=== PATIENT | female | born 1955 | race Caucasian/White ===

== ENCOUNTER 2019-11-16 07:08 | Outpatient (CLI) | payer BC, SELFPAY ==
[2019-11-16 08:01] LABS: Alanine Aminotransferase 17 U/L (4-35); Albumin Level 4.4 g/dL (3.5-5.1); Alkaline Phosphatase 113 U/L (38-126); Aspartate Amino Transferase 26 U/L (14-36); Bilirubin,Total 0.4 mg/dL (0.2-1.3); Blood Urea Nitrogen 14 mg/dL (7-17); Calcium 9.5 mg/dL (8.4-10.2); Carbon Dioxide 31 mmol/L (22-30); Chloride 100 mmol/L (98-107); Cholesterol 203 mg/dL (0-200); Estimated Glomerular Filt Rate > 60; Glucose 86 mg/dL (65-105); HDL Direct 51 mg/dL; Potassium 3.9 mmol/L (3.4-5.0); Sodium 139 mmol/L (137-145); Triglycerides 137 mg/dL (<150)
[2019-11-16 08:12] LABS: LDL Cholesterol Direct 130 mg/dL
== END 2019-11-16 07:09 | disposition home or self-care (01) ==
PROVIDERS: PCP Internal Medicine; Visit Provider Nurse Practitioner
DX: I10 Essential (primary) hypertension (principal); E78.5 Hyperlipidemia, unspecified
CPT/HCPCS: 36415; 80053; 80061

== ENCOUNTER 2019-11-23 06:34 | Outpatient (CLI) | payer BC, SELFPAY ==
--- NOTE | 2019-11-23 07:29 | ECHO_ITS ---
Patient Info Name: Kathryn Turner Age: 64 years : 1955 Gender: Female Ht: 66 in Wt: 161 lbs BSA: 1.86 m2 HR: 72 bpm BP: 144 / 99 mmHg Technical Quality: Good Exam Date: 11/23/2019 8:08 AM Exam Location: [facility] Patient Status: Outpatient Admit Date: 11/23/2019 Staff Ordering Physician: Cesar Corbin APN News Videographer: Jasper Cali RDCS, RT Attending Provider: Cesar Corbin APN Referring Physician: Shaquille DEMPSEY; Exam Type: CA echo doppler color flow Study Info Indications R55 - Syncope and collapse Complete two-dimensional, color flow and Doppler transthoracic echocardiogram is performed. Summary 1. Left ventricular chamber dimension is normal. 2. Left ventricular systolic function is normal, estimated at 60-65%. 3. There is mildly increased left ventricular wall thickness. 4. The left ventricular diastolic function is grade I diastolic dysfunction. 5. E/e' 7 is not elevated. 6. Global longitudinal strain is slightly abnormal at -16.6%. 7. There is mild aortic valve regurgitation. Left Ventricle E/e' 7 is not elevated. Global longitudinal strain is slightly abnormal at -16.6%. Left ventricular chamber dimension is normal. Left ventricular systolic function is normal, estimated at 60-65%. There is mildly increased left ventricular wall thickness. The left ventricular diastolic function is grade I diastolic dysfunction. Right Ventricle Right ventricular chamber dimension is normal. Right ventricular systolic function is normal. Left Atria Left atrial chamber dimension is normal. Right Atria Right atrial chamber dimension is normal. Aortic Valve The aortic valve is trileaflet. There is no aortic valve stenosis. There is mild aortic valve regurgitation. Pulmonic Valve There is no pulmonic regurgitation. Mitral Valve There is no mitral valve stenosis. There is no mitral valve regurgitation. Tricuspid Valve There is no tricuspid valve regurgitation. Pericardium/Pleural There is no pericardial effusion. Inferior Vena Cava Normal inferior vena cava with >50% collapse upon inspiration consistent with normal right atrial pressure, 5 mmHg. Aorta The aortic root size at the sinus of Valsalva is normal. Left Ventricular Outflow Tract Name Value Normal LVOT 2D LVOT Diameter 1.9 cm LVOT Doppler LVOT Peak Gradient 4 mmHg LVOT Mean Gradient 2 mmHg LVOT VTI 17 cm LVOT VTI/AV VTI Ratio 0.6 LVOT Stroke Volume 51 ml LVOT CO 3.9 l/min LVOT CI 2.1 l/min/m2 Pulmonic Valve Name Value Normal PV Doppler PV Peak Gradient 3 mmHg Mitral Valve
--- NOTE | 2019-11-23 07:30 | NEURO_ITS ---
TEST: ELECTROENCEPHALOGRAM DIAGNOSIS: SYNCOPE AND COLLAPSE PATIENT NUMBER: [id number] EEG NUMBER: [id number] RECORDING DATE: 11/23/19 CLINICAL HISTORY: Patient reports she has been losing consciousness since she was a kid. Happens about once a year. No warning signs before and is tired afterwards. CONDITION OF RECORDING: Awake and drowsy EEG DESCRIPTION: Basic resting occipital frequency consists of moderate amount of well organized low to medium voltage 8-10hz alpha mixed with minimal amount of low voltage 15-18hz beta. During drowsiness low voltage beta activity is seen diffusely mixed with waxing and waning posterior alpha rhythms. Photic stimulation produced normal drive. Nonparoxysmal. Nonfocal. Nonlateralizing. IMPRESSION: Normal record. [facility]
--- NOTE | 2019-11-26 12:38 | WPDHOLTEREM ---
Holter/Event Monitor Holter/Event Monitor Date of procedure: 11/23/19 Procedure Type: 48 hour holter monitor Indications: Syncope Conclusion: 1. 48 hour holter monitor on 11/23/19. 2. Underlying rhythm is sinus rhythm. HR range 40-136 bpm; average HR 86 bpm. 3. There are 165 premature supraventricular complexes, 3 supraventricular couplets, 1 supraventricular triplet, 3 supraventricular bigeminy. No supraventricular tachycardia. 4. There are 38 premature ventricular complexes. No ventricular tachycardia. 5. No sinoatrial or atrioventricular blocks. No significant pauses greater than 2 seconds. 6. Patient reports chest pain, neck pulsations, left shoulder tightness, flutter which demonstrate Sinus rhythm, HR range 79-110 bpm.
== END 2019-11-23 06:35 | disposition home or self-care (01) ==
PROVIDERS: PCP Internal Medicine; Visit Provider Nurse Practitioner
DX: R55 Syncope and collapse (principal)
CPT/HCPCS: 93225; 93226; 93306; 95816

== ENCOUNTER 2021-06-20 07:29 | Outpatient (CLI) | payer BC, SELFPAY ==
[2021-06-20 08:10] LABS: Anion Gap 13 mmol/L (8-16); Blood Urea Nitrogen 12 mg/dL (7-17); Calcium 9.6 mg/dL (8.4-10.2); Carbon Dioxide 31 mmol/L (22-30); Chloride 98 mmol/L (98-107); Cholesterol 200 mg/dL (0-200); Estimated Glomerular Filt Rate > 60; Glucose 94 mg/dL (65-110); HDL Direct 43 mg/dL; Potassium 3.8 mmol/L (3.4-5.0); Sodium 142 mmol/L (137-145); Triglycerides 237 mg/dL (<150)
[2021-06-20 08:21] LABS: LDL Cholesterol Direct 110 mg/dL
== END 2021-06-20 07:30 | disposition home or self-care (01) ==
PROVIDERS: PCP Internal Medicine; Visit Provider Internal Medicine
DX: E78.5 Hyperlipidemia, unspecified (principal); I10 Essential (primary) hypertension; E04.9 Nontoxic goiter, unspecified
CPT/HCPCS: 36415; 80048; 80061; 84443

== ENCOUNTER 2021-10-08 09:49 | Emergency (ER) | payer MEDICARE, BC, SELFPAY ==
--- NOTE | ~2021-10-08 | XR_ITS ---
XR chest 1V portable 10/08/2021 10:07 Indication: Fatigue. Left-sided back pain. Procedure: AP portable chest Comparison: 08/31/2019 Findings: There is a focal opacification in the left upper thorax, suspicious for pneumonia. Heart si ze normal. Right lung clear. No pleural effusion or pneumothorax. Impression: 1: Focal opacification left upper thorax, suspicious for pneumonia. Recommend follow-up x-ray in 3-4 weeks following appropriate therapy to assess for resolution. Reviewed, dictated and finalized at location A. NG MECHANIC Impression: 1: Focal opacification left upper thorax, suspicious for pneumonia. Recommend f ollow-up x-ray in 3-4 weeks following appropriate therapy to assess for resolut ion.
--- NOTE | ~2021-10-08 | CT_ITS ---
EXAMINATION: CT abdomen pelvis w con DATE: 10/08/2021 11:33 INDICATION: Left lower quadrant abdominal pain TECHNIQUE: Computed tomography (CT) of the abdomen and pelvis was performed with 100 cc Omnipaque 350 intravenous contrast. Automated exposure control and iterative reconstruction technique were employe d. Exam dose: 533.83 mGy-cm total exam DLP. COMPARISON: None. FINDINGS: The lung bases are clear of infiltrate or consolidation. Normal heart size. No pericardial or pleural effusion. Very small sliding hiatal hernia. There is an approximately 5.3 x 6.6 x 10 cm large heterogeneous apparently centrally necrotic right a drenal mass with prominent invasion of the inferior vena cava. There is a 2 x 3.2 x 4.4 cm left adrenal heterogeneous soft tissue mass. Differential diagnosis inclu jaqui bilateral intrarenal carcinoma, pheochromocytomas and metastatic disease. The right adrenal mass would be amenable to CT-guided V for biopsy. There is diffuse hepatic steatosis. No hepatic space-occupying mass lesion is evident. The gallbladde r is present. No bile duct dilatation. No pancreatic mass lesion, calcification or pancreatic duct di latation. Normal splenic size. No renal mass lesion or urinary tract calculus or hydroureteronephrosis. Retroverted uterus. The urinary bladder is unremarkable. There is atherosclerotic calcification but normal caliber of the abdominal aorta. There is calcificat ion of the proximal renal arteries. There is nonspecific shotty pericaval and aortocaval nonenlarged nodes. There is diverticulosis of the right colon; no CT evidence of diverticulitis. Normal appendix. No bow el obstruction, bowel wall thickening, pneumatosis or intraperitoneal free air. Small fat-containing umbilical hernia. No suspicious osteolytic or osteoblastic lesions are noted. IMPRESSION: Bilateral adrenal masses with inferior vena cava invasion. Primary or metastatic bilater al adrenal malignancy or pheochromocytomas or metastatic disease is suspected; consider CT-guided per cutaneous right adrenal mass biopsy Hepatic steatosis Very small sliding hiatal hernia Diverticulosis of the right colon; no CT evidence of diverticulitis Reviewed, dictated and finalized at [facility]. Reviewed, dictated and finalized at location B. ER OFF IMPRESSION: Bilateral adrenal masses with inferior vena cava invasion. Primary or metastatic bilateral adrenal malignancy or pheochromocytomas or metastatic disease is suspected; consider CT-guided percutaneous right adrenal mass biopsy Hepatic steatosis Very small sliding hiatal hernia Diverticulosis of the right colon; no CT evidence of diverticulitis
[2021-10-08 09:48] VITALS: BP 137/61; PULSE 104; RESP 16; TEMP 36.6; O2SAT 95
[2021-10-08 10:18] LABS: Basophils Absolute Auto 0.1 K/mm3 (0.0-0.1); Basophils Percent Auto 0.6 % (0.2-1.2); Eosinophils Absolute Auto 0.4 K/mm3 (0-0.3); Eosinophils Percent Auto 2.9 % (0-4.4); Hemoglobin 11.5 g/dL (12.0-15.0); Immature Granulocyte Absolute 0.06 K/mm3 (0.00-0.031); Immature Granulocyte Percent A 0.5 % (0-0.5); Lymphocytes Percent Auto 13.8 % (18.3-44.2); Mean Corpuscular HGB Conc 31.9 g/dl (32-36); Mean Corpuscular Hemoglobin 28.9 pg (26-34); Mean Corpuscular Volume 90.5 fl (80-100); Mean Platelet Volume 10.6 fl (7.4-10.4); Monocytes Absolute Auto 0.8 K/mm3 (0.1-0.6); Monocytes Percent Auto 6.2 % (2.6-8.5); Neutrophils Absolute Auto 9.9 K/mm3 (1.3-6.7); Platelet Count Result 353 k/mm3 (150-375); Red Blood Count 3.98 M/mm3 (4.2-5.4); Red Cell Distribution Width 13.3 % (11.5-14.5)
[2021-10-08 10:31] LABS: Alanine Aminotransferase 14 U/L (4-35); Alkaline Phosphatase 116 U/L (38-126); Anion Gap 8 mmol/L (8-16); Aspartate Amino Transferase 25 U/L (14-36); Bilirubin,Total 0.6 mg/dL (0.2-1.3); Blood Urea Nitrogen 14 mg/dL (7-17); Calcium 9.6 mg/dL (8.4-10.2); Carbon Dioxide 31 mmol/L (22-30); Chloride 97 mmol/L (98-107); Estimated CRCL calculation 57 ml/min; Estimated Glomerular Filt Rate > 60; Glucose 104 mg/dL (65-110); Lipase 25 U/L (23-300); Potassium 3.3 mmol/L (3.4-5.0); Sodium 136 mmol/L (137-145)
[2021-10-08] MEDS: SODIUM CHLORIDE 0.9% IV 1,000 ML 999 ML IV CONT (11:13)
[2021-10-08 12:53] VITALS: BP 125/73; PULSE 81; RESP 16; O2SAT 97
[2021-10-08 13:16] LABS: Add Urine Microscopic? YES; Appearance Urine Clear (Clear); Bilirubin Urine Negative (Negative); Blood Urine Negative (Negative); Color Urine Yellow (Yellow); Glucose Urine UA Negative (Negative); Ketones Urine Trace mg/dL (Negative); Leukocyte Esterase Ur Trace LEU/UL (Negative); Mucus Urine Rare /lpf; Nitrate Urine Negative (Negative); Protein Urine 2+ mg/dL (Negative); Squamous Epithelial Cell Urine Rare /hpf (Few); Urobilinogen Urine Negative mg/dL (<2.0)
[2021-10-08 14:04] LABS: Specific Grav Ur 1.005 (1.001-1.035)
--- NOTE | 2021-10-08 15:41 | ED.GENADULT ---
HPI - General Adult General Chief complaint: Back Pain/Injury Stated complaint: hip, back pain Time Seen by Provider: 10/08/21 09:51 Source: patient Mode of arrival: ambulatory Limitations: no limitations History of Present Illness HPI narrative: Patient is 66-year-old female with chief complaint of fatigue, decreased appetite and left-sided back pain that has progressively worsened over the past 5 days. Patient states that she has not seen her primary care regarding her symptoms. Patient states that she does not have nausea vomiting or abdominal pain but has not had an appetite. Patient denies her symptoms worsening with eating or drinking. Patient denies any fever, chills, cough, shortness of breath or chest pain. Patient reports that she took one of her husbands tramadol for discomfort. She denies any falls or recent traumatic injuries. Patient reports that her only chronic medical condition is hypertension. She denies history of colonoscopy or any abdominal issues. Related Data Allergies Allergy/AdvReac Type Severity Reaction Status Date / Time No Known Allergies Allergy Unknown Unverified 06/27/21 11:18 Review of Systems Review of Systems: CONSTITUTIONAL: Reports loss of appetite denies fever, chills, or sweats. EYES: Denies visual changes, redness, or discharge. ENT: Denies rhinorrhea, congestion, sore throat, or otalgia. CARDIOVASCULAR: Denies chest pain, palpitations, or edema. RESPIRATORY: Denies cough or dyspnea. GASTROINTESTINAL: Denies abdominal pain, nausea, vomiting, or diarrhea. GENITOURINARY: Denies dysuria or hematuria. SKIN: Denies rash or itching. MUSCULOSKELETAL: Reports left side back pain, denies joint pain, or myalgia. NEUROLOGIC: Denies headache, numbness, dizziness, or weakness. PSYCHIATRIC: Denies anxiety or depression. [facility] Past Medical History Medical History (Updated 10/08/21 @ 12:21 by Manjinder Franks PA-C) Chronic back pain Goiter Hypertension Surgical History Surgical History Hx of tubal ligation Family History Family History Mother Patient's mother is in good health Father Carcinoma of colon, Onset Age: 62 Patient's father is Social History Social History (Updated 06/27/21 @ 11:18 by MICHELLE Pop Smoking status: Former smoker Second hand tobacco smoke exposure: No Smoking end date: 10/20/00 Alcohol intake: never Substance use: never Gender identity (if verbalized by the patient): Female Exam Narrative: GENERAL: Well-appearing, well-nourished, and in no acute distress. HEAD: Normocephalic, atraumatic. EYES: PERRLA and EOMI. ENT: Nares clear, no rhinorrhea or epistaxis. Mucous membranes moist. Oropharynx without tonsillar hypertrophy exudate or other lesions. Bilateral TMs pearly geller nonbulging NECK: Supple. No adenopathy or masses. Range of motion intact. CHEST: Clear to auscultation. No respiratory distress. No wheezes rales or rhonchi HEART: Regular rate and rhythm. No murmur heard. Normal peripheral pulses. BACK: No pain with palpation. No CVA tenderness. ABDOMEN: Soft, pain with palpation to left quadrant, nondistended, normal active bowel sounds. EXTREMITIES: Normal range of motion. No edema. SKIN: Warm, dry, no rash. NEURO: No focal deficits. Alert and oriented x3. PSYCH: Normal mood and affect. Course Vital Signs Vital signs: Vital Signs Temperature 97.8 F 10/08/21 09:48 Pulse Rate 104 H 10/08/21 09:48 Respiratory Rate 16 10/08/21 09:48 Blood Pressure 137/61 10/08/21 09:48 Pulse Oximetry 95 10/08/21 09:48 Temperature 97.8 F 10/08/21 09:48 Pulse Rate 81 10/08/21 12:53 Respiratory Rate 16 10/08/21 12:53 Blood Pressure 125/73 10/08/21 12:53 Pulse Oximetry 97 10/08/21 12:53 Medical Decision Making MDM Narrative Medical decision making narrative: Consult with patien
== END 2021-10-08 12:54 | disposition home or self-care (01) ==
PROVIDERS: Physician Assistant; Emergency Provider Emergency Medicine; PCP Internal Medicine
DX: R91.8 Other nonspecific abnormal finding of lung field (principal); E27.9 Disorder of adrenal gland, unspecified; I10 Essential (primary) hypertension; Z87.891 Personal history of nicotine dependence; K76.0 Fatty (change of) liver, not elsewhere classified; K44.9 Diaphragmatic hernia without obstruction or gangrene; K57.90 Diverticulosis of intestine, part unspecified, without perforation or abscess without bleeding
CPT/HCPCS: 36415; 71045; 74177; 80053; 81001; 83690; 85025; 96360; 99284; J7030; Q9967

== ENCOUNTER 2021-10-10 09:49 | Inpatient (IN) | payer MEDICARE, BC, SELFPAY ==
[2021-10-10] VITALS (7 sets, daily range): BP systolic 113–139; BP diastolic 62–87; PULSE 79–104; RESP 14–18; TEMP 36.1; O2SAT 98–100
--- NOTE | ~2021-10-10 | US_ITS ---
US venous doppler [facility] DATE: 10/12/2021 08:04 INDICATION: Pulmonary embolism TECHNIQUE: Real-time and color flow imaging and Doppler analysis of the veins of the lower extremitie s COMPARISON: None FINDINGS: There is spontaneous and phasic flow and normal augmentation and color flow signal and norm al compression of the deep veins of both lower extremities. The greater saphenous veins are patent. IMPRESSION: No evidence of deep venous thrombosis of the lower extremities Reviewed, dictated and finalized at Location [facility]. Reviewed, dictated and finalized at location A. OLOGIC TECHNOLOGY PROGRAM DIRECTOR
--- NOTE | ~2021-10-10 | CT_ITS ---
EXAMINATION: CT biopsy abdomen percutaneous DATE: 10/11/2021 12:05 INDICATION: Right adrenal mass. TECHNIQUE: The procedure including the risks, benefits, and alternatives was discussed with the patie nt. Risks discussed included bleeding and infection. The patient verbalized understanding of the risk s and agreed to proceed. The skin overlying the right adrenal gland was prepped and draped in usual sterile fashion. Anesthetic was administered with 1% lidocaine subcutaneously. A 16 gauge outer nee dle was advanced under CT guidance into the right adrenal gland. An 18 gauge core biopsy needle was t hen used to obtain 3 core biopsy specimens. The mA was adjusted according to patient size. Iterative reconstruction technique was employed. The dose-length product was 128.89 mGy-cm. The needle was olimpia pepito and the entry site was cleaned and dressed. There were no immediate complications. FINDINGS: CT images demonstrate the outer needle tip next to a right adrenal mass. IMPRESSION: 1. CT-guided core needle biopsy of a right adrenal mass. Reviewed, dictated and finalized at location A. TREAT INSPECTOR
--- NOTE | ~2021-10-10 | CT_ITS ---
EXAMINATION:CT diagnostic chest w con DATE: 10/10/2021 14:14 INDICATION: Lung mass. TECHNIQUE: Computed tomography (CT) of the chest was performed with 75 mL Omnipaque 350 intravenous c ontrast. Automated exposure control and iterative reconstruction technique were employed. The dose-le ngth product (DLP) was 137.02 mGy-cm. COMPARISON: Chest 2 views 10/08/2021, CT abdomen and pelvis 10/08/2021 FINDINGS: There is a 4.8 x 2.5 x 3.7 cm mass in left lung upper lobe. There is a 7 mm nodule in right lower lobe. There is a 5 mm nodule at right major fissure. No pleural effusion. The heart size is no rmal. No pericardial effusion. There is a pulmonary embolus in right upper lobe. Partially visualized is a 4.5 x 10.5 cm mass involving right adrenal gland with invasion of the inferior vena cava. Parti ally visualized is a 3.0 cm mass in left adrenal gland. There is mild thoracic spondylosis. IMPRESSION: 1. 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 2. Bilateral adrenal masses, consistent with metastatic disease. CT-guided biopsy of the right adrena l mass is recommended. 3. Small right lung nodules, which are indeterminate for metastatic disease. 4. Acute pulmonary embolus in right lung upper lobe. I called this result to Dr. Peña. Reviewed, dictated and finalized at location [facility]. [facility] IMPRESSION: 1. Mass in left lung upper lobe, consistent with primary bronchogenic carcinoma . 2. Bilateral adrenal masses, consistent with metastatic disease. CT-guided biop sy of the right adrenal mass is recommended. 3. Small right lung nodules, which are indeterminate for metastatic disease. 4. Acute pulmonary embolus in right lung upper lobe. I called this result to Dr Yariel Peña.
--- NOTE | 2021-10-10 10:04 | PC.NURSE ---
Pt ambulatory to intake desk stating she was going to go to her car and lye down. Explained to pt, if she goes to her car, we are unable to monitor her while she is out there. well I feel like I am going to pass out , I again explained to the patient, all the more reason to stay seated in the waiting room. Pt. completely ambulatory out to the WR with nl steady gait.
--- NOTE | 2021-10-10 10:34 | PC.NURSE ---
Pt witnessed walking out to her car from the waiting room bathroom. Normal steady gait.
--- NOTE | 2021-10-10 11:08 | PC.NURSE ---
Pt spouse to intake desk, my is outside in the car, she cannot sit due to her back pain. . I explained to him , as the same as to her. We are very sorry due to the current census we have no beds at this time, we are unable to monitor her from the car . He stated, i keep trying to tell her that . Again reiterated, we cannot monitor her from the car, and will not call when she is next, there are many others in the wr who needs beds as well. per spouse i understand thaT, she has an IV in . I told him if she refused to wait in the ed wr, he needs to bring her up so we can remove the iv.
[2021-10-10] MEDS: KETOROLAC 15 MG/ML VIAL (*BKC) IV PUSH (13:31)
[2021-10-10] MEDS: HYDROmorphone HCL INJ (*CRX) 1 MG/ML SYR 0.5 MG IV PUSH ×2 (13:31→19:49)
[2021-10-10 14:03] LABS: Basophils Absolute Auto 0.1 K/mm3 (0.0-0.1); Basophils Percent Auto 0.4 % (0.2-1.2); Eosinophils Absolute Auto 0.4 K/mm3 (0-0.3); Eosinophils Percent Auto 2.7 % (0-4.4); Hematocrit 35.3 % (37.0-47.0); Hemoglobin 11.5 g/dL (12.0-15.0); Immature Granulocyte Absolute 0.06 K/mm3 (0.00-0.031); Immature Granulocyte Percent A 0.4 % (0-0.5); Lymphocytes Absolute Auto 1.85 K/mm3 (0.9-3.2); Mean Corpuscular HGB Conc 32.6 g/dl (32-36); Mean Corpuscular Hemoglobin 28.8 pg (26-34); Mean Corpuscular Volume 88.5 fl (80-100); Mean Platelet Volume 10.9 fl (7.4-10.4); Monocytes Absolute Auto 1.3 K/mm3 (0.1-0.6); Monocytes Percent Auto 9.1 % (2.6-8.5); Neutrophils Absolute Auto 10.6 K/mm3 (1.3-6.7); Neutrophils Percent Auto 74.4 % (45.5-73.1); Platelet Count Result 340 k/mm3 (150-375); Red Blood Count 3.99 M/mm3 (4.2-5.4); Red Cell Distribution Width 13.4 % (11.5-14.5); White Blood Count 14.2 K/mm3 (4.5-10.0)
[2021-10-10 14:11] LABS: Estimated CRCL calculation 57 ml/min; Estimated Glomerular Filt Rate > 60
[2021-10-10 14:15] LABS: CRP 7.2 mg/dL (<1.0)
[2021-10-10 14:16] LABS: Anion Gap 8 mmol/L (8-16); Blood Urea Nitrogen 15 mg/dL (7-17); CRP 7.6 mg/dL (<1.0); Calcium 9.7 mg/dL (8.4-10.2); Carbon Dioxide 30 mmol/L (22-30); Chloride 94 mmol/L (98-107); Estimated CRCL calculation 65 ml/min; Estimated Glomerular Filt Rate > 60; Glucose 97 mg/dL (65-110); Potassium 3.3 mmol/L (3.4-5.0); Sodium 132 mmol/L (137-145)
--- NOTE | 2021-10-10 15:36 | ED.GENADULT ---
HPI - General Adult General Chief complaint: Back Pain/Injury Stated complaint: back pain, light headed Time Seen by Provider: 10/10/21 12:24 Source: patient and family Mode of arrival: ambulatory Limitations: no limitations History of Present Illness HPI narrative: 66-year-old with a history of hypertension here with back pain patient states that her back pain has been ongoing for last several weeks. Was seen here in the ER yesterday had a CT of the abdomen which shows right adrenal mass. Patient was discharged home to follow-up with her primary doctor. Patient states that she was at her primary doctor's office today and felt extremely dizzy and was about to passed out and was later referred to the ER. Now complains of left sacroiliac pain. She denies any bladder or bowel incontinence. No history of fall. However patient states that for the past few weeks she has been feeling weak and has lack of appetite. Denies any blood in the urine. Patient complains of constant dizziness. Onset (ago): week(s) Location: back Radiation: non-radiation Severity: severe Quality: aching Pain Consistency: constant Relieving factors: none Associated symptoms: loss of appetite and malaise Treatments prior to arrival: none Related Data Allergies Allergy/AdvReac Type Severity Reaction Status Date / Time No Known Allergies Allergy Unknown Verified 10/10/21 11:16 Review of Systems Review of Systems: All systems reviewed & are unremarkable except as noted in HPI and below Constitutional: Constitutional: Reports as per HPI Eyes: Eyes: Reports no additional eye complaints ENT: Reports system reviewed and no additional complaints, except as documented Cardiovascular: Cardiovascular: Reports no additional cardiovascular complaints Respiratory: Respiratory: Reports no additional respiratory complaints Gastrointestinal: Gastrointestinal: Reports no additional gastrointestinal complaints Musculoskeletal: Musculoskeletal: Reports as per HPI Neurologic: Reports system reviewed and no additional complaints, except as documented Psychiatric: Psychiatric: Reports no additional psychiatric complaints Endocrine: Endocrine: Reports no additional endocrine complaints Hematologic/Lymphatic: Hematologic/Lymphatic: Reports no additional hematologic/lymphatic complaints [facility] Past Medical History Medical History (Updated 10/10/21 @ 15:51 by Gerard Peña MD) Chronic back pain Goiter Hypertension Surgical History Surgical History Hx of tubal ligation Family History Family History Mother Patient's mother is in good health Father Carcinoma of colon, Onset Age: 62 Patient's father is Social History Social History Smoking packs per day: 1 Smoking cigarettes per day: 20.0 Years smoked: 20 Smoking pack-years: 20.00 Tobacco type: cigarettes Second hand tobacco smoke exposure: No Smoking end date: 10/20/00 Alcohol intake: never Substance use: never Gender identity (if verbalized by the patient): Female Exam Narrative: GENERAL: Well-appearing, well-nourished, and in mild distress. HEAD: Normocephalic, atraumatic. EYES: PERRLA and EOMI.. NECK: Supple. CHEST: Clear to auscultation. No respiratory distress. HEART: Regular rate and rhythm. No murmur heard. Normal peripheral pulses. ABDOMEN: Soft, nontender, nondistended, normal active bowel sounds. EXTREMITIES: Normal range of motion. No edema. Back no vertebral tenderness pain in the SI joint SKIN: Warm, dry, no rash. NEURO: No focal deficits. Alert and oriented x3. PSYCH: Normal mood and affect. Course Course Emergency Course: I have reviewed her lab work, CT findings from yesterday. Discussed with Dr. Montiel recommended CT of the chest which I did showed bronchogenic carcino
[2021-10-10] MEDS: ONDANSETRON INJ 4 MG/2 ML VIAL IV PUSH (17:17)
--- NOTE | 2021-10-10 17:24 | PC.NURSE ---
Pt updated. Dinner tray ordered for her. Visitor remains at bedside. Pt ambulatory to RR. Continuing to await admission bed assignment. Denies need for pain medication at this time. Call light in reach.
[2021-10-10] MEDS: SODIUM CHLORIDE 0.9% IV 1,000 ML 75 ML IV CONT (19:59)
--- NOTE | 2021-10-10 22:37 | PC.NURSE ---
This patient, Kathryn Turner, was admitted to Medical Room 342-01. Patient/family oriented to hospital policies and general routines including ID bracelet, bed and alarms, visiting hours, pain management, procedures, bathroom and other care routines, personal items, smoking policy, room service/diet, and visiting hours. Information on how to activate the Rapid Response Team has been discussed. Patient/Family are encouraged to report perceived risks to care and to ask questions if they do not understand what they are told or what they should do.
--- NOTE | 2021-10-10 23:28 | PM.IMHP ---
H&P: HPI History of Present Illness Date/Time: 10/10/212229 this is a 66-year-old female patient has a history of hypertension and has been having some back pain that is been ongoing for the last several weeks. The patient had been in the emergency room 2 days and was given oral antibiotics for pneumonia. She was told to follow-up with her primary care doctor. The patient follow-up with her primary care doctor today and was also found to have bilateral adrenal masses. The patient felt very ill today and felt like she was going to pass out. She has been eating very little. Therefore she was sent to the emergency room today. The patient was brought to the emergency room today with complaints of back pain. White count 14.2. H&H is 11.5 and 35.3. Sodium 132. Potassium 3.3. Chloride 94. C reactive protein is 7.2. Chest x-ray was read as the following. 1. 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 2. Bilateral adrenal masses, consistent with metastatic disease. CT-guided biopsy of the right adrenal mass is recommended. 3. Small right lung nodules, which are indeterminate for metastatic disease. 4. Acute pulmonary embolus in right lung upper lobe. I called this result to Dr. Peña. Anticoagulation has not been started as of yet because the patient is going for a biopsy tomorrow. Interventional radiology has been notified for biopsy tomorrow. The patient was given Dilaudid and Toradol. Chief Complaint: Pain Review of Systems Review of Systems: All systems reviewed & are unremarkable except as noted in HPI and below Constitutional: Constitutional: Reports as per HPI and Reports no additional constitutional complaints Eyes: Eyes: Reports as per HPI and Reports no additional eye complaints ENT: Reports system reviewed and no additional complaints, except as documented and Reports Normal hearing present Cardiovascular: Cardiovascular: Reports no additional cardiovascular complaints Respiratory: Respiratory: Reports no additional respiratory complaints and Reports no additional respiratory complaints Gastrointestinal: Gastrointestinal: Reports as per HPI and Reports no additional gastrointestinal complaints Musculoskeletal: Musculoskeletal: Reports no additional musculoskeletal complaints Integumentary/Breasts: Skin/Breast: Reports system reviewed and no additional complaints, except as docu and Reports as per HPI Neurologic: Reports system reviewed and no additional complaints, except as documented, Reports as per HPI and Reports Normal hearing present Psychiatric: Psychiatric: Reports no additional psychiatric complaints and Reports as per HPI Endocrine: Endocrine: Reports no additional endocrine complaints Hematologic/Lymphatic: Hematologic/Lymphatic: Reports no additional hematologic/lymphatic complaints Allergic/Immunologic: Allergic/Immunologic: Reports no additional allergic/immunologic complaints PMF Past Medical History Medical History Chronic back pain Goiter Hypertension Surgical History Surgical History History of removal of pigmented skin lesion Hx of tubal ligation Family History Family History Mother Patient's mother is in good health Father Carcinoma of colon, Onset Age: 62 Patient's father is Social History Social History (Updated 10/10/21 @ 23:39 by Sarah Prater NP) Social History: The patient has 1 son. She lives with her who is the durable power protohistorian for healthcare. The patient is retired from the postal service. The patient quit smoking many years ago. She denies any alcohol marijuana or illicit drugs. Code status full code Smoking packs per day: 1 Smoking cigarettes per day: 20.0 Years smoked: 20 Smoking pack-years: 20.00 Smoking status:
[2021-10-11] VITALS: BP 119/64; PULSE 90; RESP 14; TEMP 35.8; O2SAT 98
[2021-10-11] MEDS: fentaNYL (*CRX) 25 MCG PATCH TRANSDERM (01:12)
[2021-10-11 04:00] VITALS: BP 120/65; PULSE 89; RESP 12; TEMP 36.1; O2SAT 99
[2021-10-11] MEDS: POTASSIUM CHLORIDE 20 MEQ PACKET (FOR LIQUID) PO (06:30)
[2021-10-11 06:33] LABS: Lactic Acid Reflex 0.9 mmol/L (0.7-2.1)
[2021-10-11 06:37] LABS: Basophils Absolute Auto 0.1 K/mm3 (0.0-0.1); Basophils Percent Auto 0.8 % (0.2-1.2); Eosinophils Absolute Auto 0.6 K/mm3 (0-0.3); Eosinophils Percent Auto 5.3 % (0-4.4); Hematocrit 35.3 % (37.0-47.0); Hemoglobin 11.2 g/dL (12.0-15.0); Immature Granulocyte Absolute 0.05 K/mm3 (0.00-0.031); Immature Granulocyte Percent A 0.5 % (0-0.5); Lymphocytes Absolute Auto 1.55 K/mm3 (0.9-3.2); Lymphocytes Percent Auto 14.6 % (18.3-44.2); Mean Corpuscular HGB Conc 31.7 g/dl (32-36); Mean Corpuscular Hemoglobin 28.5 pg (26-34); Mean Corpuscular Volume 89.8 fl (80-100); Monocytes Absolute Auto 0.9 K/mm3 (0.1-0.6); Monocytes Percent Auto 8.9 % (2.6-8.5); Neutrophils Absolute Auto 7.4 K/mm3 (1.3-6.7); Neutrophils Percent Auto 69.9 % (45.5-73.1); Platelet Count Result 335 k/mm3 (150-375); Red Blood Count 3.93 M/mm3 (4.2-5.4); Red Cell Distribution Width 13.6 % (11.5-14.5); White Blood Count 10.6 K/mm3 (4.5-10.0)
[2021-10-11 06:41] LABS: Anion Gap 7 mmol/L (8-16); Blood Urea Nitrogen 16 mg/dL (7-17); CRP 7.2 mg/dL (<1.0); Calcium 9.2 mg/dL (8.4-10.2); Carbon Dioxide 28 mmol/L (22-30); Chloride 99 mmol/L (98-107); Estimated CRCL calculation 57 ml/min; Estimated Glomerular Filt Rate > 60; Glucose 100 mg/dL (65-110); Lactate Dehydrogenase 429 U/L (313-618); Magnesium 1.7 mg/dL (1.6-2.3); Potassium 3.7 mmol/L (3.4-5.0); Sodium 134 mmol/L (137-145)
[2021-10-11 08:00] VITALS: BP 123/60; PULSE 87; RESP 18; TEMP 36.5; O2SAT 99
[2021-10-11 08:08] LABS: INR 1.1; Prothrombin Time 14.3 Seconds (11.1-14.7)
[2021-10-11] MEDS: amLODIPine BESYLATE 5 MG TABLET PO (08:47)
[2021-10-11] MEDS: LOSARTAN POTASSIUM 100 MG TABLET PO (08:47)
[2021-10-11] MEDS: hydroCHLOROthiazide 25 MG TABLET PO (08:47)
[2021-10-11] MEDS: levoFLOXacin 750 MG TABLET PO (08:47)
[2021-10-11] MEDS: SODIUM CHLORIDE 0.9% IV 1,000 ML 75 ML IV CONT (10:59)
[2021-10-11 12:00] VITALS: BP 125/51; PULSE 77; RESP 16; TEMP 36.8; O2SAT 95
--- NOTE | 2021-10-11 16:12 | PDONCCN ---
HPI - Date of Consult Date/Time: 10/11/21 16:12 Requesting Physician: Danish Hernandez MD Primary Care Provider: Kwan Magdaleno, DO - Consult Narrative Narrative: Kathryn Turner is a 66 year old female with back pain a EFRA mass and bilateral adrenal metastases she was admitted for biopsy - of note she has a pulmonary embolus as well she denies weakness or loss of sensation or bladder or bowel control. she is a past smoker but stopped 40 years ago. Review of Systems - Neurologic Reports system reviewed and no additional complaints, except as documented, Reports hearing normal [facility] Medical History: Medical History (Last Reviewed 10/10/21 @ 23:39 by Sarah Prater NP) Chronic back pain Goiter Hypertension Surgical History: Surgical History (Last Reviewed 10/10/21 @ 23:39 by Sarah Prater NP) History of removal of pigmented skin lesion Hx of tubal ligation Family History: Family History (Last Reviewed 10/10/21 @ 23:39 by Sarah Prater NP) Mother Patient's mother is in good health Father Carcinoma of colon, Onset Age: 62 Patient's father is - Social History Social History: Social History (Last Updated 10/10/21 @ 23:39 by Sarah Prater NP) Gender Identity: Gender identity (if verbalized by the patient): Female Alcohol Use: Alcohol intake: never Substance Use: Substance use: never Others: Spiritual care concerns: No Smoking Status: Smoking status: Former smoker Tobacco type: cigarettes Second hand tobacco smoke exposure: No Smoking end date: 10/20/00 Approximate Smoking End Date: 1999 Smoking Pack-years: Smoking packs per day: 1 Smoking cigarettes per day: 20.0 Years smoked: 20 Smoking pack-years: 20.00 Meds Home Medications Medication Instructions Recorded Confirmed Type losartan 100 mg tablet 100 mg PO DAILY #90 tablet 08/14/21 10/10/21 Rx hydrocodone-acetaminophen 1 tablet PO Q8H PRN 3 Days #7 10/08/21 10/10/21 Rx tablet levofloxacin 750 mg PO DAILY #5 tablet 10/08/21 10/10/21 Rx amlodipine 5 mg PO DAILY 10/10/21 10/10/21 History hydrochlorothiazide 25 mg PO DAILY 10/10/21 10/10/21 History Allergies Allergy/AdvReac Type Severity Reaction Status Date / Time No Known Allergies Allergy Unknown Verified 10/10/21 11:16 Results - Labs CBC & Chem 7: 10/11/21 06:04 10/11/21 06:04 Labs: Short CBC 10/11/21 Range/Units 06:04 WBC 10.6 H (4.5-10.0) K/mm3 Hgb 11.2 L (12.0-15.0) g/dL Hct 35.3 L (37.0-47.0) % Plt Count 335 (150-375) k/mm3 BMP 10/11/21 06:04 Sodium 134 L Potassium 3.7 Chloride 99 Carbon Dioxide 28 BUN 16 Creatinine 0.80 Glucose 100 Calcium 9.2 Assessment and Plan - Additional Plan we will need to follow up as soon as a tentative diagnoses is received from Pathology
--- NOTE | 2021-10-11 17:13 | PM.IMPN ---
Progress Note: A&P Assessment and Plan (1) Mass of left lung: Code(s): R91.8 - Other nonspecific abnormal finding of lung field Status: Acute Assessment and Plan: As mentioned above the patient has a mass in her left lung upper lobe consistent with primary bronchogenic carcinoma. She also has bilateral adrenal masses consistent with metastatic disease. A CT-guided biopsy was performed by Radiology. Lovenox started this afternoon. Pain control is optimal with fentanyl patch and Dilaudid p.r.n. (2) Pulmonary embolism: Qualifiers: Acute cor pulmonale presence: without acute cor pulmonale Chronicity: acute Pulmonary embolism type: unspecified Qualified Code(s): I26.99 - Other pulmonary embolism without acute cor pulmonale Code(s): I26.99 - Other pulmonary embolism without acute cor pulmonale Status: Acute Assessment and Plan: Follow-up echocardiogram and venous Dopplers. Currently patient is asymptomatic at rest, breathing comfortably on room air. She is hemodynamically stable. She is anxious to go home. Will follow-up on those exam an evaluate for discharge to morphine. (3) CAP (community acquired pneumonia): Code(s): J18.9 - Pneumonia, unspecified organism Status: Acute Assessment and Plan: Leukocytosis likely reactive. Continue with levofloxacin although it is least likely that this is pneumonia. (4) Essential (primary) hypertension: Code(s): I10 - Essential (primary) hypertension Status: Acute Assessment and Plan: Patient previously on losartan 100 mg p.o. daily, hydrochlorothiazide and amlodipine 5 mg p.o. daily. Continue with losartan and hydrochlorothiazide and Norvasc. If patient's blood pressure becomes too low from her pain medication may consider holding 1 or all of these medications. Subjective Date/time seen: 10/11/21 17:00 s: Patient examined at the bedside denies any complaint. She is comfortable on room air. She underwent CT-guided biopsy of right had anal mass earlier today. Review of Systems Review of Systems: All systems reviewed & are unremarkable except as noted in HPI and below Constitutional: Constitutional: Reports as per HPI and Reports no additional constitutional complaints Eyes: Eyes: Reports as per HPI and Reports no additional eye complaints ENT: Reports system reviewed and no additional complaints, except as documented and Reports Normal hearing present Cardiovascular: Cardiovascular: Reports no additional cardiovascular complaints Respiratory: Respiratory: Reports no additional respiratory complaints and Reports no additional respiratory complaints Gastrointestinal: Gastrointestinal: Reports as per HPI and Reports no additional gastrointestinal complaints Musculoskeletal: Musculoskeletal: Reports no additional musculoskeletal complaints Integumentary/Breasts: Skin/Breast: Reports system reviewed and no additional complaints, except as docu and Reports as per HPI Neurologic: Reports system reviewed and no additional complaints, except as documented, Reports as per HPI and Reports Normal hearing present Psychiatric: Psychiatric: Reports no additional psychiatric complaints and Reports as per HPI Endocrine: Endocrine: Reports no additional endocrine complaints Hematologic/Lymphatic: Hematologic/Lymphatic: Reports no additional hematologic/lymphatic complaints Allergic/Immunologic: Allergic/Immunologic: Reports no additional allergic/immunologic complaints Exam Const: General: cooperative, healthy appearing, comfortable, no acute distress, well developed, alert, awake and Physically active Nutritional Appearance: average body habitus and thin Orientation/consciousness: oriented to person, oriented to place, oriented to time and patient oriented x3 Limitations: no limitations HENMT: Head: normal to inspection Ears: hearing grossly normal bilaterally General nose exam: Normal external nose present
[2021-10-11] MEDS: ENOXAPARIN 80 MG/0.8 ML SYRINGE 75 MG SUB-Q (17:40)
[2021-10-11] MEDS: ACETAMINOPHEN 325 MG TABLET 650 MG PO (17:51)
[2021-10-11 20:00] VITALS: BP 119/50; PULSE 85; RESP 16; TEMP 36.2; O2SAT 97
[2021-10-12] VITALS (8 sets, daily range): BP systolic 103–137; BP diastolic 55–78; PULSE 78–114; RESP 16–20; TEMP 36–36.1; O2SAT 98–100
--- NOTE | 2021-10-12 | ECHO_ITS ---
Patient Info Name: Kathryn Turner Age: 66 years : 1955 Gender: Female Ht: 66 in Wt: 158 lbs BSA: 1.84 m2 HR: 91 bpm BP: 103 / 55 mmHg Heart Rhythm: Sinus Rhythm Exam Date: 10/12/2021 9:17 AM Exam Location: [facility] Patient Status: Inpatient Admit Date: 10/10/2021 Staff Ordering Physician: Lina Mccartney MD Sack Maker: Jasper Cali, ISSAC, RT Attending Provider: Andrew Hernandez MD Exam Type: CA echo doppler color flow Study Info Indications I26.99 - Other pulmonary embolism without acute cor pulmonale Complete two-dimensional, color flow and Doppler transthoracic echocardiogram is performed. Strain analysis performed. Summary 1. Complete two-dimensional, color flow and Doppler transthoracic echocardiogram is performed. 2. Left ventricular chamber dimension is normal. 3. Strain analysis performed. 4. Left ventricular systolic function is normal, estimated at 60-65%. 5. There is mildly increased left ventricular wall thickness. 6. The left ventricular diastolic function is grade I diastolic dysfunction. 7. Global longitudinal strain is borderline at -18 %. 8. Left atrial chamber dimension is mildly enlarged. 9. There is mild aortic valve regurgitation. 10. There is mild mitral valve regurgitation. 11. There is mild tricuspid valve regurgitation. Left Ventricle Left ventricular chamber dimension is normal. Left ventricular systolic function is normal, estimated at 60-65%. There is mildly increased left ventricular wall thickness. The left ventricular diastolic function is grade I diastolic dysfunction. Global longitudinal strain is borderline at -18 %. Right Ventricle Right ventricular chamber dimension is normal. Right ventricular systolic function is normal. Left Atria Left atrial chamber dimension is mildly enlarged. Right Atria Right atrial chamber dimension is normal. Atrial Septum Intact interatrial septum visualized by color flow imaging. Aortic Valve The aortic valve is trileaflet. There is mild aortic valve sclerosis. There is no aortic valve stenosis. There is mild aortic valve regurgitation. Pulmonic Valve The pulmonic valve is normal. There is no pulmonic valve stenosis. There is trace pulmonic regurgitation. Mitral Valve The mitral valve has normal leaflets. There is no mitral valve stenosis. There is mild mitral valve regurgitation. Tricuspid Valve The tricuspid valve leaflets are normal. There is no significant tricuspid valve stenosis. There is mild tricuspid valve regurgitation. No pulmonary hypertension, estimated pulmonary arterial systolic pressure is 30 mmHg. Pericardium/Pleural The pericardium appears normal. There is no pericardial effusion. Inferior Vena Cava Normal inferior vena cava with >50% collapse upon inspiration consistent with normal right atrial pressure, 5 mmHg. Aorta The aortic root size at the sinus of Valsalva is normal. Left Ventricular Outflow Tract Name Value Normal LVOT 2D LVOT Diameter 1.9 cm LVOT Doppler LVOT Peak Gradient 3 mmHg LVOT Mean Gradient
[2021-10-12] MEDS: ACETAMINOPHEN 325 MG TABLET 650 MG PO ×3 (00:52→15:40)
[2021-10-12] MEDS: SODIUM CHLORIDE 0.9% IV 1,000 ML 75 ML IV CONT ×2 (02:00→18:58)
[2021-10-12] MEDS: ENOXAPARIN 80 MG/0.8 ML SYRINGE 75 MG SUB-Q (06:02)
[2021-10-12] MEDS: levoFLOXacin 750 MG TABLET PO (08:14)
[2021-10-12] MEDS: hydroCHLOROthiazide 25 MG TABLET PO (08:15)
[2021-10-12] MEDS: amLODIPine BESYLATE 5 MG TABLET PO (08:15)
[2021-10-12] MEDS: LOSARTAN POTASSIUM 100 MG TABLET PO (08:15)
--- NOTE | 2021-10-12 12:54 | PM.IMPN ---
Progress Note: A&P Assessment and Plan (1) Mass of left lung: Code(s): R91.8 - Other nonspecific abnormal finding of lung field Status: Acute Assessment and Plan: As mentioned above the patient has a mass in her left lung upper lobe consistent with primary bronchogenic carcinoma. She also has bilateral adrenal masses consistent with metastatic disease. A CT-guided biopsy was performed by Radiology. Lovenox started this afternoon. Pain control is optimal with fentanyl patch and Dilaudid p.r.n. (2) Pulmonary embolism: Qualifiers: Acute cor pulmonale presence: without acute cor pulmonale Chronicity: acute Pulmonary embolism type: unspecified Qualified Code(s): I26.99 - Other pulmonary embolism without acute cor pulmonale Code(s): I26.99 - Other pulmonary embolism without acute cor pulmonale Status: Acute Assessment and Plan: Follow-up echocardiogram and venous Dopplers. Currently patient is asymptomatic at rest, breathing comfortably on room air. She is hemodynamically stable. She is anxious to go home. Will follow-up on those exam an evaluate for discharge to morphine. (3) CAP (community acquired pneumonia): Code(s): J18.9 - Pneumonia, unspecified organism Status: Acute Assessment and Plan: Leukocytosis likely reactive. Continue with levofloxacin although it is least likely that this is pneumonia. (4) Essential (primary) hypertension: Code(s): I10 - Essential (primary) hypertension Status: Acute Assessment and Plan: Patient previously on losartan 100 mg p.o. daily, hydrochlorothiazide and amlodipine 5 mg p.o. daily. Continue with losartan and hydrochlorothiazide and Norvasc. If patient's blood pressure becomes too low from her pain medication may consider holding 1 or all of these medications. Additional Plan 10/12/2021 Patient had biopsy done waiting for report. Physical examination clinically stable. Start patient on p.o Eliquis. If stays ok,will discharge patient home tomorrow morning. Subjective Date/time seen: 10/12/21 12:54 Patient was seen during the morning rounds today. Patient pain is under control. Mild shortness of breath no chest pain. No abdominal pain, nausea, no vomiting. Mood stable. Review of Systems Review of Systems: All systems reviewed & are unremarkable except as noted in HPI and below Constitutional: Constitutional: Reports as per HPI and Reports no additional constitutional complaints Eyes: Eyes: Reports as per HPI and Reports no additional eye complaints ENT: Reports system reviewed and no additional complaints, except as documented and Reports Normal hearing present Cardiovascular: Cardiovascular: Reports no additional cardiovascular complaints Respiratory: Respiratory: Reports no additional respiratory complaints and Reports no additional respiratory complaints Gastrointestinal: Gastrointestinal: Reports as per HPI and Reports no additional gastrointestinal complaints Musculoskeletal: Musculoskeletal: Reports no additional musculoskeletal complaints Integumentary/Breasts: Skin/Breast: Reports system reviewed and no additional complaints, except as docu and Reports as per HPI Neurologic: Reports system reviewed and no additional complaints, except as documented, Reports as per HPI and Reports Normal hearing present Psychiatric: Psychiatric: Reports no additional psychiatric complaints and Reports as per HPI Endocrine: Endocrine: Reports no additional endocrine complaints Hematologic/Lymphatic: Hematologic/Lymphatic: Reports no additional hematologic/lymphatic complaints Allergic/Immunologic: Allergic/Immunologic: Reports no additional allergic/immunologic complaints Exam Const: General: cooperative, healthy appearing, comfortable, no acute distress, well developed, alert, awake and Physically active Nutritional Appearance: average body habitus and thin Orientation/consciousness: oriented to pe
[2021-10-12] MEDS: APIXABAN 5 MG TABLET 10 MG PO (20:48)
[2021-10-13 04:00] VITALS: BP 100/48; PULSE 93; RESP 18; TEMP 37.2; O2SAT 96
--- NOTE | 2021-10-13 07:29 | PM.IMPN ---
Subjective Date/time seen: 10/13/21 07:29 Objective Data Vital Signs Vital Signs: Vital Signs - 24 hr 10/12/21 08:19 10/12/21 12:00 10/12/21 15:46 Temperature 36.1 C L 36.1 C L Pulse Rate 84 95 114 H Respiratory Rate 18 20 Blood Pressure 126/78 112/61 124/76 Pulse Oximetry 98 100 10/12/21 19:15 10/12/21 20:49 10/12/21 23:02 Temperature 36.0 C L 36.0 C L Pulse Rate 80 80 Respiratory Rate 16 16 16 Blood Pressure 115/60 117/63 Pulse Oximetry 100 100 100 10/13/21 04:00 Temperature 37.2 C Pulse Rate 93 Respiratory Rate 18 Blood Pressure 100/48 L Pulse Oximetry 96 Intake/Output Intake/Output: Intake & Output 10/10/21 10/11/21 10/12/21 10/13/21 23:59 23:59 23:59 23:59 Intake Total 1360 2820 400 Balance 1360 2820 400 Meds/Results Medications: Active Medications Generic Name Dose Route Start Last Admin Trade Name Freq PRN Reason Stop Dose Admin Acetaminophen 650 mg 10/10/21 15:27 10/12/21 15:40 Acetaminophen 325 Mg Tablet PO 650 mg Q4H PRN Administration Mild Pain (1-3) or Fever Hydrocodone Bitart/Acetaminophen 1 tab 10/11/21 16:47 Hydrocodone/Acetaminophen (*Crx) 5-325 Mg Tablet PO Q8H PRN pain 4-6 Alprazolam 0.25 mg 10/11/21 10:42 Alprazolam (*Crx) 0.25 Mg Tablet PO ONCE PRN Anxiety Amlodipine Besylate 5 mg 10/11/21 09:00 10/12/21 08:15 Amlodipine Besylate 5 Mg Tablet PO 5 mg DAILY HAN Administration Apixaban 10 mg 10/12/21 21:00 10/12/21 20:48 Apixaban 5 Mg Tablet PO 10/19/21 09:01 10 mg Q12HR HAN Administration Apixaban 5 mg 10/19/21 21:00 Apixaban 5 Mg Tablet PO Q12HR HAN Fentanyl 25 mcg 10/11/21 01:15 10/11/21 01:12 Fentanyl (*Crx) 25 Mcg Patch TRANSDERM 25 mcg Q72HR HAN Administration Hydrochlorothiazide 25 mg 10/11/21 09:00 10/12/21 08:15 Hydrochlorothiazide 25 Mg Tablet PO 25 mg DAILY HAN Administration Hydromorphone HCl 0.5 mg 10/10/21 15:27 10/10/21 19:49 Hydromorphone Hcl Inj (*Crx) 1 Mg/Ml Syr IV PUSH 0.5 mg Q4H PRN Administration Pain Rated 7-10 Sodium Chloride 1,000 mls @ 75 mls/hr 10/10/21 15:30 10/12/21 18:58 Normal Saline Iv IV CONT 75 mls/hr .[id number] HAN Administration Losartan Potassium 100 mg 10/11/21 09:00 10/12/21 08:15 Losartan Potassium 100 Mg Tablet PO 100 mg DAILY HAN Administration Ondansetron HCl 4 mg 10/10/21 15:27 10/10/21 17:17 Ondansetron Inj 4 Mg/2 Ml Vial IV PUSH 4 mg Q4H PRN Administration Nausea Radiology Results: ITS Impressions Chest CT 10/10/21 14:23 IMPRESSION: 1. 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 2. Bilateral adrenal masses, consistent with metastatic disease. CT-guided biopsy of the right adrenal mass is recommended. 3. Small right lung nodules, which are indeterminate for metastatic disease. 4. Acute pulmonary embolus in right lung upper lobe. I called this result to Dr. Peña. Abdomen Biopsy CT 10/11/21 12:06 IMPRESSION: 1. CT-guided core needle biopsy of a right adrenal mass. Venous Doppler Study 10/12/21 08:13 IMPRESSION: No evidence of deep venous thrombosis of the lower extremities Quality VTE Prophylaxis VTE prophylaxis: pharmacologic ordered
[2021-10-13 08:23] VITALS: BP 142/92
[2021-10-13] MEDS: hydroCHLOROthiazide 25 MG TABLET PO (08:24)
[2021-10-13] MEDS: LOSARTAN POTASSIUM 100 MG TABLET PO (08:24)
[2021-10-13] MEDS: amLODIPine BESYLATE 5 MG TABLET PO (08:24)
[2021-10-13] MEDS: APIXABAN 5 MG TABLET 10 MG PO (08:24)
[2021-10-13] MEDS: ACETAMINOPHEN 325 MG TABLET 650 MG PO (08:30)
--- NOTE | 2021-10-13 09:53 | PM.DS ---
DS: Admitting Diagnosis Discharge Date 10/13/2021 Admitting Diagnosis Lung mass Pulmonary embolism DS: Discharge Diagnosis Discharge Diagnosis (1) Mass of left lung: Code(s): R91.8 - Other nonspecific abnormal finding of lung field Status: Acute Assessment and Plan: As mentioned above the patient has a mass in her left lung upper lobe consistent with primary bronchogenic carcinoma. She also has bilateral adrenal masses consistent with metastatic disease. A CT-guided biopsy was performed by Radiology. Lovenox started this afternoon. Pain control is optimal with fentanyl patch and Dilaudid p.r.n. (2) Pulmonary embolism: Qualifiers: Acute cor pulmonale presence: without acute cor pulmonale Chronicity: acute Pulmonary embolism type: unspecified Qualified Code(s): I26.99 - Other pulmonary embolism without acute cor pulmonale Code(s): I26.99 - Other pulmonary embolism without acute cor pulmonale Status: Acute Assessment and Plan: Follow-up echocardiogram and venous Dopplers. Currently patient is asymptomatic at rest, breathing comfortably on room air. She is hemodynamically stable. She is anxious to go home. Will follow-up on those exam an evaluate for discharge to morphine. (3) CAP (community acquired pneumonia): Code(s): J18.9 - Pneumonia, unspecified organism Status: Acute Assessment and Plan: Leukocytosis likely reactive. Continue with levofloxacin although it is least likely that this is pneumonia. (4) Essential (primary) hypertension: Code(s): I10 - Essential (primary) hypertension Status: Acute Assessment and Plan: Patient previously on losartan 100 mg p.o. daily, hydrochlorothiazide and amlodipine 5 mg p.o. daily. Continue with losartan and hydrochlorothiazide and Norvasc. If patient's blood pressure becomes too low from her pain medication may consider holding 1 or all of these medications. DS: Summary Hospital Course Reason for hospitalization: Lung mass Pulmonary embolism Hospital Course: Patient is a 66 years old female was admitted complains of having chest pain. Patient was found to have lung mass and pulmonary embolism. Patient was given anticoagulation and biopsy of the 1 the metastatic mass was done. Biopsy report is pending. Patient was switched to Eliquis. Patient tolerated medicine very well. Today patient is feeling good so patient is discharged home in stable condition, follow-up the primary care physician and Oncology outpatient next week schedule. Time spent discussing smoking cessation with patient: 3 to 10 minutes Status at Discharge Cognitive/behavioral status at discharge: Stable Functional status at discharge: independent ambulation Overall status at discharge: patient is back to baseline Time Spent with Patient Time attestation: Total time spent providing and/or coordinating discharge services: Time spent: Less than 30 minutes Exam Const: General: cooperative, healthy appearing, comfortable, no acute distress, well developed, alert, awake and Physically active Nutritional Appearance: average body habitus and thin Orientation/consciousness: oriented to person, oriented to place, oriented to time and patient oriented x3 Limitations: no limitations HENMT: Head: normal to inspection Ears: hearing grossly normal bilaterally and external ears normal General nose exam: Normal external nose present Face and sinus: normal facial exam Mouth: Yes Normal oral and palatal mucosa present Eyes: General: appearance normal, both eyes and all related structures EOM: EOMs intact bilaterally Neck: Neck: normal visual inspection and full ROM Carotids: normal carotid upstroke Lymphatic: no lymphadenopathy noted Chest: Chest palpation & inspection: normal inspection of the chest and normal palpation of entire chest wall Resp: Effort & Inspection: normal respiratory effort Auscultation: clear to auscultation bilaterally
--- NOTE | 2021-10-13 11:00 | PC.NURSE ---
Dr. Gerardo sent the patient home with a written paper script for tramadol due to the patient having nausea with [place].
[2021-10-13] MEDS: fentaNYL (*CRX) 25 MCG PATCH TRANSDERM (12:19)
[2021-10-13 12:22] VITALS: BP 120/60; PULSE 87; RESP 20; TEMP 36.1; O2SAT 100
--- NOTE | 2021-10-13 12:56 | PC.NURSE ---
Dr. Gerardo requested I send the patient home with a fresh fentanyl patch. I instructed the patient on when to remove the patch and how to remove the patch. The patch has been covered and verified with a second nurse.
== END 2021-10-13 12:45 | disposition home or self-care (01) | DRG 180 ==
LOC: ANHED 15:51 → ANH3MEDSUR 17:34 → ANH3MED 20:05
PROVIDERS: Nurse Practitioner; Radiology Diagnostic Radiology; Admitting Provider Internal Medicine; Emergency Provider Family Medicine; PCP Internal Medicine; Visit Provider Internal Medicine
DX: C34.12 Malignant neoplasm of upper lobe, left bronchus or lung (principal); I26.99 Other pulmonary embolism without acute cor pulmonale; J18.9 Pneumonia, unspecified organism; C79.71 Secondary malignant neoplasm of right adrenal gland; I10 Essential (primary) hypertension; Z87.891 Personal history of nicotine dependence
CPT/HCPCS: 36415; 49180; 71260; 77012; 80048; 81210; 81235; 81275; 81276; 83605; 83615; 83735; 85025; 85610; 86140; 88271; 88274; 88275; 88305; 88312; 88341; 88342; 88360; 88364; 88365; 88381; 93306; 93970; 96361; 96372; 96374; 96375; 96376; 99285; A9270; G0378; J1170; J1650; J1885; J2405; J7030; Q9967

== ENCOUNTER 2021-10-30 00:45 | Outpatient (CLI) | payer MEDICARE, BC, SELFPAY ==
[2021-10-26 12:49] VITALS: BMI 25.6
--- NOTE | 2021-10-26 13:15 | PC.NURSE ---
Report to the Outpatient Waiting Room, entrance under the green pavilion located off [facility], at time _0800 on date _10/30/21 . OR Time: __1000 . - You and your visitor will be asked a series of questions to screen for COVID 19 for your protection. - A mask is required within the hospital. - Only one visitor is allowed at this time. Patient visitors will be guided where to wait when not with patient. Preoperative COVID Testing Requirements: No COVID Test needed if: (proof is required; if not received patient will have Rapid Test prior to entry) PT IS BRINGING COVID CARD. - Patient has received COVID Vaccine at least 14 days prior to procedure date or - Patient has positive COVID test result within last 90 days of surgery date. COVID Test needed if above criteria is not met If not COVID vaccinated a COVID test must be conducted within 72 hours of surgery and patient is asked to isolate self from time of testing until procedure. You will go to the [facility] for your COVID testing. The [facility] is located at the corner of [address] [facility]. You will only be called if COVID results are positive and your surgeon may reschedule your elective surgery date. Patients may have clear liquids (water, carbonated beverages, clear teas, apple juice) until 6 hours prior to surgery with a maximum of 20 ounces. - No food from midnight until time of surgery - Infants may have breast milk until 4 hours before surgery, infant formula 6 hours prior to surgery. - Children will be allowed to drink immediately following surgery. If applicable, please bring a bottle or sippy cup to assist with drinking. Juice, water, soda, and popsicles are readily available. For infants on formula, please bring formula the day of surgery. Pacifiers are allowed. Take the following medications with a SIP of water the morning of surgery: AM MEDS EXCEPT ELIQUIS Medications to discontinue per physician ELIQUIS 2 DAYS PRE-OP Date to take last dose____10/27/21 Please no make-up, nail sao tomean, hairspray, perfume, deodorant, or body powder the day of surgery. No jewelry (including any body piercings) or valuables the day of surgery, leave them at home. Please take a shower or bath the night before, or the morning of, surgery with an antibacterial soap. Wear comfortable, loose fitting clothing. Children are encouraged to wear pajamas. - Jewelry must be removed prior to entering the operating room. Rings and piercings that are not removed may be cut off. - The hospital will not accept responsibility for valuables. - Please leave all valuables, including medications, at home the day of surgery. If you are going home after surgery, a licensed route cdl driver must drive you home. - NO public transportation without another adult. - We recommend that an adult stay with you for 24 hours following discharge. - We also recommend that you do not drive, make important decision, drink alcoholic beverages, or take any drugs that were not prescribed by your health care provider for at least 24 hours after your discharge time. For Pediatric surgeries, we recommend two adults accompany the child home (only one inside the building at this time). Follow any additional instructions given to you from your surgeon. Telephone instructions given to __PT'S JOVANNY and asked if any additional questions and then verbalized understanding. Patient advised to call surgeon office or pre surgery nurse liaison [phone] if any additional questions.
[2021-10-30] VITALS (9 sets, daily range): BP systolic 114–127; BP diastolic 67–82; PULSE 77–106; RESP 16–18; TEMP 36.3; O2SAT 97–100
--- NOTE | ~2021-10-30 | XR_ITS ---
EXAMINATION: XR chest 1V portable DATE: 10/30/2021 14:36 INDICATION: Left lung mass status post percutaneous biopsy. TECHNIQUE: A single frontal view of the chest was obtained. COMPARISON: Chest single view at 12:41 PM FINDINGS: There is a mass in left lung upper lobe. No pleural effusion or pneumothorax. The heart siz e is normal. IMPRESSION: 1. Mass in left lung upper lobe suspicious for primary bronchogenic carcinoma. Reviewed, dictated and finalized at location B. POULE EXAMINER
--- NOTE | ~2021-10-30 | CT_ITS ---
EXAMINATION: CT biopsy lung w/imaging DATE: 10/30/2021 11:29 INDICATION: Left upper lobe mass TECHNIQUE: The procedure including the risks and benefits was discussed with the patient. Risks discu ssed included infection, approximately 1/20 risk of symptomatic hemorrhage beyond mild hemoptysis, ap proximately 1/3 risk of pneumothorax, and approximately 1/10 risk of pneumothorax severe enough to wa rrant chest tube placement. The patient understood the risks and agreed to proceed. The patient was p laced in the right lateral decubitus position. The skin overlying the lateral left chest wall was pr epped and draped in sterile fashion. Anesthetic was administered with 1% lidocaine subcutaneously. A 19 gauge outer needle was advanced under CT guidance to the lesion of interest. A 20 gauge core bio psy needle was then used to obtain 6 core biopsy specimens. The needle was removed and the entry site was cleaned and dressed. There were no immediate complications. The dose-length product was 287.86 mGy-cm. FINDINGS: CT images demonstrate the outer needle tip just within a 4.5 x 3.7 cm left upper lobe mass which is concerning for primary bronchogenic carcinoma. IMPRESSION: 1. Successful CT-guided biopsy of a 4.5 x 3.7 cm left upper lobe mass which is concerning for primary bronchogenic carcinoma. Reviewed, dictated and finalized at location A. L OR MOTEL CLEANING SUPERVISOR
--- NOTE | ~2021-10-30 | XR_ITS ---
EXAMINATION: XR chest 1V DATE: 10/30/2021 11:31 INDICATION: Status post percutaneous biopsy of a left upper lobe mass TECHNIQUE: frontal view of the chest was obtained. COMPARISON: Chest radiograph dated 10/08/2021 FINDINGS: Again seen is a left upper lobe mass which is concerning for primary bronchogenic carcinoma. Remainde r of the lungs are clear. No pulmonary hemorrhage, pleural effusion or pneumothorax. The cardiomedias tinal silhouette is normal. IMPRESSION: 1. No pneumothorax or other acute cardiopulmonary disease post percutaneous biopsy of a left upper lo be mass which is concerning for primary bronchogenic carcinoma. Reviewed, dictated and finalized at location A. ING ESTIMATOR IMPRESSION: 1. No pneumothorax or other acute cardiopulmonary disease post percutaneous bio psy of a left upper lobe mass which is concerning for primary bronchogenic carc inoma.
--- NOTE | ~2021-10-30 | XR_ITS ---
EXAMINATION: XR chest 1V portable DATE: 10/30/2021 12:45 INDICATION: Left lung mass status post percutaneous biopsy. TECHNIQUE: A single frontal view of the chest was obtained. COMPARISON: Chest single view 10/30/2021 FINDINGS: There is a mass in left lung upper lobe. No pleural effusion or pneumothorax. The heart siz e is normal. IMPRESSION: 1. Mass in left lung upper lobe suspicious for primary bronchogenic carcinoma. Reviewed, dictated and finalized at location B. LBOARD TANK PUMPER
[2021-10-30 09:02] LABS: Mean Platelet Volume 10.9 fl (7.4-10.4); Platelet Count Result 407 k/mm3 (150-375)
[2021-10-30 09:25] LABS: Prothrombin Time 13.2 Seconds (11.1-14.7)
--- NOTE | 2021-10-30 12:59 | SUR.PHASEII ---
1235 PORTABLE CXR DONE.
== END 2021-10-30 14:55 | disposition home or self-care (01) ==
PROVIDERS: PCP Internal Medicine; Visit Provider Radiology Diagnostic Radiology
PROC: BB24ZZZ Computerized Tomography (CT Scan) of Bilateral Lungs (ICD-10-PCS; CPT 32408; principal; 2021-10-30 10:00)
DX: C34.90 Malignant neoplasm of unspecified part of unspecified bronchus or lung (principal); Z51.81 Encounter for therapeutic drug level monitoring; Z79.899 Other long term (current) drug therapy
CPT/HCPCS: 32408; 36415; 71045; 85049; 85610; 88305; 88312; 88342

== ENCOUNTER 2021-11-10 16:37 | Inpatient (IN) | payer MEDICARE, BC, SELFPAY ==
[2021-11-10] VITALS (9 sets, daily range): BP systolic 92–108; BP diastolic 62–69; PULSE 75–109; RESP 12–28; TEMP 36.5–38.4; O2SAT 97–100; BMI 26.0; BMI 26.3
--- NOTE | ~2021-11-10 | XR_ITS ---
EXAMINATION: XR chest 1V portable EXAM DATE: 11/13/2021 05:34 INDICATION: Fever. TECHNIQUE: Portable AP frontal chest x-ray was obtained. Comparison is made to prior examination from 11/10/2021. FINDINGS: Left upper lobe mass consistent with primary lung cancer unchanged. There is no pneumothora x suspected. Right pleural blunting, possible small pleural effusion. Cardiomediastinal silhouette is normal. There are no osseous abnormalities identified. IMPRESSION: 1. Left upper lobe mass. 2. Possible small right pleural effusion. Reviewed, dictated and finalized at location A. SPACE MEDICINE PHYSICIAN
--- NOTE | ~2021-11-10 | XR_ITS ---
EXAMINATION: XR chest 1V portable INDICATION: Shortness of breath TECHNIQUE: Portable AP chest at 1734 hours COMPARISON: 10/30/2021 FINDINGS: A stable mass is present in the left upper lobe. The lungs are free of acute opacities. The re is no pleural effusion or pneumothorax. The cardiomediastinal silhouette is normal. IMPRESSION: 1. No acute cardiopulmonary abnormality. 2. Stable left upper lobe mass, consistent with primary bronchogenic carcinoma. Reviewed, dictated and finalized at location F. NG AUDITOR
--- NOTE | ~2021-11-10 | XR_ITS ---
EXAMINATION: XR abdomen obstructive series DATE: 11/13/2021 12:56 INDICATION: Abdominal pain. Nausea and vomiting. TECHNIQUE: Upright and supine views of the abdomen were obtained. COMPARISON: CT abdomen and pelvis 11/10/2021 FINDINGS: There are no dilated loops of bowel. There is a small volume of stool in the colon. No free intraperitoneal gas. There is a mass in left lung upper lobe. There is a small right pleural effusio n. IMPRESSION: 1. Normal bowel gas pattern. 2. Mass in left lung upper lobe, consistent with malignancy. 3. Small right pleural effusion. Reviewed, dictated and finalized at location A. PLUGGER
--- NOTE | ~2021-11-10 | CT_ITS ---
EXAMINATION: CT abdomen pelvis w con INDICATION: Abdominal pain TECHNIQUE: Computed tomographic images of the abdomen and pelvis were obtained after the administrati on of 100 cc of Omnipaque 350 intravenous contrast. The dose-length product (DLP) was 659.17 mGy-cm. Automated exposure control and iterative reconstruction technique were employed. COMPARISON: 10/08/2021 FINDINGS: Corporate Controller radiograph demonstrates the known left upper lobe mass. A 7 mm nodule is noted in the right lower lobe. There are bilateral adrenal masses. The right adrenal mass measures 7.7 x 5.0 cm. Adrenal masses on the left measure up to 4.3 x 2.7 cm. The left adrenal mass invades the inferior mahad a cava, passes through the liver, and partially extends into the right atrium. There is heterogeneous enhancement of the liver and wall thickening of the gallbladder. A small volume of ascites has devel oped. The spleen and pancreas are normal. The kidneys are unremarkable. There is calcified atheroscle rosis of the aorta and many of the other arteries. There is periportal lymphadenopathy. The bladder i s decompressed by catheter. IMPRESSION: 1. Bilateral adrenal masses with invasion of the inferior vena cava by the right adrenal mass with ex tension of the mass into the right atrium. 2. Mottled enhancement of the liver and gallbladder wall thickening likely relate to inferior vena ca va obstruction. Recommend correlation for right upper quadrant tenderness has cholecystitis could hav e a similar appearance but is considered less likely. 3. 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 Reviewed, dictated and finalized at location F. HER SUPERVISOR IMPRESSION: 1. Bilateral adrenal masses with invasion of the inferior vena cava by the righ t adrenal mass with extension of the mass into the right atrium. 2. Mottled enhancement of the liver and gallbladder wall thickening likely rela te to inferior vena cava obstruction. Recommend correlation for right upper rose drant tenderness has cholecystitis could have a similar appearance but is consi dered less likely. 3. 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
--- NOTE | 2021-11-10 16:54 | ECG_ITS ---
Measurements Intervals [place] Rate: 112 P: 36 IL: 172 QRS: 33 QRSD: 86 T: 82 QT: 292 QTc: 400 Interpretive Statements SINUS TACHYCARDIA POSSIBLE LEFT ATRIAL ENLARGEMENT LOW QRS VOLTAGE IN PRECORDIAL LEADS CONSIDER ANTEROSEPTAL INFARCT, AGE INDETERMINATE ST-T WAVE ABNORMALITY IN HIGH LATERAL LEADS- CONSIDER ISCHEMIA BASELINE WANDER- III, V1-V6 ABNORMAL ECG Electronically Signed On 11-10-2021 20:10:24 MAILER APPRENTICE by Curtis Bello D.O.
--- NOTE | 2021-11-10 16:55 | ED.GENADULT ---
HPI - General Adult General Chief complaint: Shortness of Breath/Dyspnea Stated complaint: SOB,CP Time Seen by Provider: 11/10/21 16:50 Source: RN notes reviewed History of Present Illness HPI narrative: Patient presents emergency department from home for shortness of breath. Patient states that this evening she is feeling short of breath as well as having anterior chest pain and upper abdominal pain. Upper abdominal pain was associated with intermittent nausea. Patient states that pain is described as pressure in nature. When EMS arrived they stated the patient's oxygen was in the low 90s and she was placed on nonrebreather mask but is currently on a nasal cannula patient states she does have a history of recent lung cancer with masses on her adrenal glands she has been followed by Dr. Rice and is post be going to get a port next week as these have been biopsied. She denies any diarrhea or any other symptoms Related Data Home Medications Medication Instructions Recorded Confirmed amlodipine 5 mg PO QAM 10/10/21 10/30/21 hydrochlorothiazide 25 mg PO QAM 10/10/21 10/30/21 acetaminophen [Acetaminophen Extra 1,000 mg PO Q6H PRN 10/26/21 10/30/21 Strength] fentanyl 1 patch TRANSDERMAL Q72H PRN 10/26/21 10/30/21 losartan 100 mg PO QAM 10/26/21 10/30/21 tramadol 50 mg PO Q8-10H 10/26/21 10/30/21 Allergies Allergy/AdvReac Type Severity Reaction Status Date / Time No Known Allergies Allergy Unknown Verified 10/30/21 08:59 Review of Systems Review of Systems: Gen.: Denies fevers or chills ENT: Denies congestion Respiratory: Reports shortness of breath and cough CV: Reports anterior chest pain GI: Reports upper abdominal pain and nausea Musculoskeletal: Denies back pain or muscle pain Neuro: Denies numbness, tingling, weakness or focal weakness Skin: Denies rash Except as documented, all other systems reviewed and negative PMFSH Past Medical History Medical History (Updated 11/10/21 @ 22:03 by Yair Inman DO) Chronic back pain Goiter Hypertension Non-small cell carcinoma of lung, stage 4 Surgical History Surgical History (Updated 10/11/21 @ 16:34 by Nixon Sousa MD) History of removal of pigmented skin lesion Hx of tubal ligation Family History Family History Mother Patient's mother is in good health Father Carcinoma of colon, Onset Age: 62 Patient's father is Social History Social History Social History: The patient has 1 son. She lives with her who is the durable power deputy commonwealth's attorney for healthcare. The patient is retired from the postal service. The patient quit smoking many years ago. She denies any alcohol marijuana or illicit drugs. Code status full code Smoking packs per day: 1 Smoking cigarettes per day: 20.0 Years smoked: 28 Smoking pack-years: 28.00 Smoking status: Former smoker Tobacco type: cigarettes Second hand tobacco smoke exposure: No Smoking end date: 04/19/93 Alcohol intake: never Substance use: never Additional living arrangements comments: HUSB Gender identity (if verbalized by the patient): Female Spiritual care concerns: No Exam Narrative: APPEARANCE: No acute distress, nontoxic, resting in bed EYES: EOMI HEENT: Normocephalic, atraumatic, oral mucosa dry RESPIRATORY: No respiratory distress Clear to auscultation bilaterally with no rhonchi wheezing or rales. CARDIOVASCULAR: Regular rate and rhythm without murmurs rubs or gallops. Chest: Tender palpation of the bilateral anterior chest wall. No ecchymosis ABDOMINAL: Soft, nondistended tender palpation epigastric, right upper quadrant quadrant no tenderness right lower quadrant left lower quadrant no rebound or guarding MUSCULOSKELETAl: Moves all extremities. No clubbing, cyanosis or edema. NEURO: Awake and alert. Following commands, speech normal,
[2021-11-10] MEDS: SODIUM CHLORIDE 0.9% IV 1,000 ML 999 ML IV CONT ×2 (17:09→18:09)
[2021-11-10 17:15] LABS: Basophils Absolute Auto 0.1 K/mm3 (0.0-0.1); Basophils Percent Auto 0.7 % (0.2-1.2); Eosinophils Absolute Auto 0.8 K/mm3 (0-0.3); Eosinophils Percent Auto 4.5 % (0-4.4); Hematocrit 36.8 % (37.0-47.0); Hemoglobin 11.7 g/dL (12.0-15.0); Immature Granulocyte Absolute 0.08 K/mm3 (0.00-0.031); Immature Granulocyte Percent A 0.4 % (0-0.5); Lymphocytes Absolute Auto 2.54 K/mm3 (0.9-3.2); Lymphocytes Percent Auto 14.2 % (18.3-44.2); Mean Corpuscular HGB Conc 31.8 g/dl (32-36); Mean Corpuscular Hemoglobin 27.7 pg (26-34); Mean Corpuscular Volume 87.2 fl (80-100); Mean Platelet Volume 11.8 fl (7.4-10.4); Monocytes Absolute Auto 1.7 K/mm3 (0.1-0.6); Monocytes Percent Auto 9.5 % (2.6-8.5); Neutrophils Absolute Auto 12.6 K/mm3 (1.3-6.7); Neutrophils Percent Auto 70.7 % (45.5-73.1); Platelet Count Result 376 k/mm3 (150-375); Red Blood Count 4.22 M/mm3 (4.2-5.4); Red Cell Distribution Width 14.7 % (11.5-14.5); White Blood Count 17.9 K/mm3 (4.5-10.0)
[2021-11-10 17:16] LABS: Alveolar/Arterial O2 Gradient 172.7 mmHg; Base Excess ABG -0.3 mEq/l (+/-2.0); Device NASAL CANNULA; Fractional Inspired Oxygen 45 %; HCO3 ABG 22.9 mEq/l (22.0-26.0); Modified Allen's Test Pass; Oxygen Content ABG 15.7 %vol (16.0-22.0); Oxygen Saturation ABG 98.3 % (95.0-100.0); Oxyhemoglobin 97.1 % THb (90.0-100.0); PCO2 ABG 32.5 mmHg (35.0-45.0); PO2 ABG 111.2 mmHg (80.0-100.0); PO2 FiO2 Ratio Arterial Blood 2.47 %; Site Drawn LEFT RADIAL; Total Hemoglobin 11.4 g/dL (12.0-18.0); pH ABG 7.465 (7.350-7.450)
[2021-11-10 17:25] LABS: INR 2.4; Prothrombin Time 25.5 Seconds (11.1-14.7)
[2021-11-10 17:28] LABS: Lactic Acid Reflex 3.8 mmol/L (0.7-2.1)
[2021-11-10 17:30] LABS: Alanine Aminotransferase 46 U/L (4-35); Albumin Level 3.9 g/dL (3.5-5.1); Alkaline Phosphatase 178 U/L (38-126); Anion Gap 11 mmol/L (8-16); Aspartate Amino Transferase 68 U/L (14-36); Blood Urea Nitrogen 30 mg/dL (7-17); Calcium 9.8 mg/dL (8.4-10.2); Carbon Dioxide 29 mmol/L (22-30); Chloride 91 mmol/L (98-107); Estimated Glomerular Filt Rate 32; Glucose 123 mg/dL (65-110); Lipase 62 U/L (23-300); Potassium 3.7 mmol/L (3.4-5.0); Sodium 131 mmol/L (137-145)
[2021-11-10 17:37] LABS: NT Pro B Type Natriuretic Pept 525 pg/mL (5-100)
[2021-11-10 17:54] LABS: SARS-CoV-2 RNA PCR Negative
[2021-11-10 18:34] LABS: Add Urine Microscopic? YES; Appearance Urine Cloudy (Clear); Bacteria Urine Trace /hpf; Bilirubin Urine Negative (Negative); Blood Urine Negative (Negative); Color Urine Amber (Yellow); Glucose Urine UA Negative (Negative); Hyaline Casts Urine 20-29 /lpf; Ketones Urine Negative (Negative); Leukocyte Esterase Ur 2+ LEU/UL (Negative); Mucus Urine Few /lpf; Nitrate Urine Negative (Negative); Protein Urine 2+ mg/dL (Negative); Specific Grav Ur 1.019 (1.001-1.035); Squamous Epithelial Cell Urine Many /hpf (Few); WBC Urine 51-75 /hpf
[2021-11-10] MEDS: SODIUM CHLORIDE 0.9% IV 500 ML 999 ML IV CONT (19:02)
[2021-11-10 19:34] LABS: Troponin I < 0.012 ng/mL (0.000-0.034)
--- NOTE | 2021-11-10 20:12 | PM.IMHP ---
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 Patient comes today to the emergency room due to generalized weakness, fatigue, poor appetite, weight loss, shortness of breath, back pain, no fevers, no rigors, no chills, no nausea, no vomiting, no pain or burning with urination, no diarrhea. Patient is being in the midst of getting her treatment plan out with Oncology and will be getting her Port-A-Cath soon. Patient also was complaining of chest pain. Preliminary workup was significant for chest x-ray with no acute cardiopulmonary abnormality, stable left upper lobe mass, consistent with primary bronchogenic carcinoma. 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 Recommend correlation for right upper quadrant cholecystitis could have a similar appearance but is considered less likely,small volume of ascites, likely related to inferior vena cava obstruction. Urinalysis showed numerous wbc's present. Patient has been admitted for further evaluation, management and treatment. Review of Systems Review of Systems: Generalized weakness, fatigue, back pain, poor appetite, weight loss. Constitutional: Constitutional: Denies chills, Reports fatigue, Denies fever(s), Reports poor appetite and Reports weakness Eyes: Eyes: Denies change in vision ENT: Denies dysphagia, Denies nasal congestion, Denies nasal discharge, Denies nasal obstruction and Denies odynophagia Cardiovascular: Cardiovascular: Denies pedal edema, Denies irregular heart rhythm, Denies claudication, Denies leg edema, Denies palpitations, Reports dyspnea and Reports dyspnea on exertion Respiratory: Respiratory: Denies chest congestion, Denies cough, Denies excessive phlegm production and Reports dyspnea Gastrointestinal: Gastrointestinal: Denies abdominal pain, Denies dyspepsia, Denies heartburn, Denies diarrhea, Denies nausea and Denies vomiting Genitourinary: Genitourinary: Denies dysuria Musculoskeletal: Musculoskeletal: Reports back pain, Denies arthralgias and Denies joint swelling Integumentary/Breasts: Skin/Breast: Denies rash Neurologic: Denies focal weakness and Denies Sensory deficit (Neuro) Psychiatric: Psychiatric: Reports no additional psychiatric complaints and Reports as per HPI Endocrine: Endocrine: Denies change in body appearance, Denies cold intolerance, Denies excessive sweating, Denies heat intolerance, Denies polyphagia, Denies polydipsia and Denies palpitations Hematologic/Lymphatic: Hematologic/Lymphatic: Reports no additional hematologic/lymphatic complaints and Reports as per HPI Allergic/Immunologic: Allergic/Immunologic: Reports no additional allergic/immunologic complaints and Reports as per HPI PMFSH Past Medical History Medical History (Updated 11/11/21 @ 02:02 by Bebeto Flores MD) Chronic back pain Goiter Hypertension Non-small cell carcinoma of lung, stage 4 Surgical History Surgical History (Updated 10/11/21 @ 16:34 by Nixon Sousa MD) History of removal of pigmented skin lesion Hx of tubal ligation Family History Family History Mother Patient's mother is in good health Father Carcinoma of colon, Onset Age: 62 Patient's father is Social History Social History Social History: The patient has 1 son. She lives with her who is the durable power traffic law attorney for healthcare. The patient is retired from the postal service. The patient quit smoking many years ago.
[2021-11-10 20:14] LABS: Reflex Lactic Acid Yes or No Add Lactic
[2021-11-10 21:56] LABS: Lactic Acid 1.8 mmol/L (0.7-2.1)
--- NOTE | 2021-11-10 22:03 | ADMGEN ---
This patient, Kathryn Turner, was admitted to IMU Room 205-01 at 2150 on 11/10/2021. Patient/family oriented to hospital policies and general routines including ID bracelet, bed and alarms, visiting hours, pain management, procedures, bathroom and other care routines, personal items, smoking policy, room service/diet, and visiting hours. Information on how to activate the Rapid Response Team has been discussed. Patient/Family are encouraged to report perceived risks to care and to ask questions if they do not understand what they are told or what they should do.
[2021-11-10] MEDS: SODIUM CHLORIDE 0.9% IV 1,000 ML 100 ML IV CONT (23:26)
[2021-11-10 23:39] LABS: Troponin I < 0.012 ng/mL (0.000-0.034)
[2021-11-11] VITALS (17 sets, daily range): BP systolic 81–102; BP diastolic 49–65; PULSE 70–100; RESP 14–18; TEMP 36.5–36.9; O2SAT 96–100
[2021-11-11] MEDS: APIXABAN 5 MG TABLET PO ×2 (03:31→20:51)
[2021-11-11 05:19] LABS: Basophils Absolute Auto 0.1 K/mm3 (0.0-0.1); Basophils Percent Auto 0.5 % (0.2-1.2); Eosinophils Absolute Auto 1.2 K/mm3 (0-0.3); Hematocrit 28.8 % (37.0-47.0); Hemoglobin 9.1 g/dL (12.0-15.0); Immature Granulocyte Absolute 0.07 K/mm3 (0.00-0.031); Immature Granulocyte Percent A 0.4 % (0-0.5); Lymphocytes Absolute Auto 3.44 K/mm3 (0.9-3.2); Lymphocytes Percent Auto 20.5 % (18.3-44.2); Mean Corpuscular HGB Conc 31.6 g/dl (32-36); Mean Corpuscular Hemoglobin 27.7 pg (26-34); Mean Corpuscular Volume 87.8 fl (80-100); Monocytes Absolute Auto 1.8 K/mm3 (0.1-0.6); Monocytes Percent Auto 10.7 % (2.6-8.5); Neutrophils Absolute Auto 10.2 K/mm3 (1.3-6.7); Neutrophils Percent Auto 60.9 % (45.5-73.1); Platelet Count Result 264 k/mm3 (150-375); Red Blood Count 3.28 M/mm3 (4.2-5.4); Red Cell Distribution Width 14.8 % (11.5-14.5); White Blood Count 16.8 K/mm3 (4.5-10.0)
[2021-11-11 05:31] LABS: Anion Gap 7 mmol/L (8-16); Blood Urea Nitrogen 28 mg/dL (7-17); Calcium 8.2 mg/dL (8.4-10.2); Carbon Dioxide 26 mmol/L (22-30); Chloride 99 mmol/L (98-107); Estimated CRCL calculation 34 ml/min; Estimated Glomerular Filt Rate 38; Glucose 101 mg/dL (65-110); Potassium 3.5 mmol/L (3.4-5.0); Sodium 132 mmol/L (137-145)
[2021-11-11] MEDS: SODIUM CHLORIDE 0.9% IV 500 ML 999 ML IV CONT (08:47)
[2021-11-11] MEDS: SODIUM CHLORIDE 0.9% IV 1,000 ML 100 ML IV CONT (08:48)
--- NOTE | 2021-11-11 10:09 | PM.IMPN ---
Progress Note: A&P Assessment and Plan (1) Acute UTI: Code(s): N39.0 - Urinary tract infection, site not specified Status: Acute Assessment and Plan: Zosyn started 11/10 PM. Cultures in progress Clinically improving (2) Sepsis: Qualifiers: Sepsis type: sepsis due to unspecified organism Sepsis acute organ dysfunction status: with acute organ dysfunction Severe sepsis acute organ dysfunction type: acute renal failure Acute renal failure type: unspecified Severe sepsis shock status: with septic shock Qualified Code(s): A41.9 - Sepsis, unspecified organism; R65.21 - Severe sepsis with septic shock; N17.9 - Acute kidney failure, unspecified Code(s): A41.9 - Sepsis, unspecified organism Status: Acute Assessment and Plan: She presented leukocytosis hypotension and acute kidney injury with probable urinary tract infection Fluid resuscitation Zosyn (3) Hypokalemia: Code(s): E87.6 - Hypokalemia Status: Acute Assessment and Plan: Likely due to poor intake and IV saline Supplement with potassium and IV fluids (4) Non-small cell carcinoma of lung, stage 4: Qualifiers: Laterality: unspecified laterality Qualified Code(s): C34.90 - Malignant neoplasm of unspecified part of unspecified bronchus or lung Code(s): C34.90 - Malignant neoplasm of unspecified part of unspecified bronchus or lung Status: Acute Assessment and Plan: Has yet to begin therapy. Follows with Dr. Rice (5) Essential (primary) hypertension: Code(s): I10 - Essential (primary) hypertension Status: Acute Assessment and Plan: Holding meds due to hypotension Monitor (6) Diastolic heart failure, NYHA class 1: Code(s): I50.30 - Unspecified diastolic (congestive) heart failure Status: Acute Assessment and Plan: Clinically intravascular volume is depleted Subjective Date/time seen: 11/11/21 10:09 Interval history: Presented to ED for right-sided chest discomfort with ongoing upper and lower back discomfort from her metastatic sarcomatoid lung cancer. Troponins were negative and creatinine was elevated and urine was consistent with UTI. 11/11 visit: Still complains of moderate back pain. Minimal right chest pain. Poor appetite. No n/v. No other GI/ c/o. No SOB. No abnormal bleeding. Review of Systems Review of Systems: All systems reviewed & are unremarkable except as noted in HPI and below Exam Narrative: HEENT: PERRL, sclerae nonicteric, pharyngeal mucosa pink and intact NECK: No JVD, adenopathy, or thyromegaly CHEST: Clear to auscultation. Normal effort. HEART: NL S1/S2, regular, no murmur ABDOMEN: BS+, soft, nontender, no mass, no bruits EXTREMITIES: No cyanosis, edema, or clubbing NEUROLOGIC: CN intact and symmetric to inspection. MUSCULOSKELETAL: Tone and strength symmetric. PSYCH: Alert. Oriented to person, place, and time. Objective Data Vital Signs Vital Signs: Vital Signs - 24 hr 11/10/21 16:48 11/10/21 16:55 11/10/21 17:13 Temperature 101.2 F H Pulse Rate 100 109 H 96 Respiratory Rate 28 H 14 Blood Pressure 97/66 L Pulse Oximetry 100 100 11/10/21 17:15 11/10/21 18:00 11/10/21 19:03 Temperature 99.2 F Pulse Rate 102 H 83 Respiratory Rate 14 13 Blood Pressure 105/69 92/63 L Pulse Oximetry 98 11/10/21 21:27 11/10/21 21:55 11/10/21 22:00 Temperature 97.7 F 98 F Pulse Rate 75 78 88 Respiratory Rate 12 16 Blood Pressure 102/69 108/62 Pulse Oximetry 97 100 11/11/21 00:00 11/11/21 00:20 11/11/21 02:00 Temperature 98.1 F Pulse Rate 74 74 84 Respiratory Rate 14 Blood Pressure 99/65 L Pulse Oximetry 96 11/11/21 02:24 11/11/21 03:57 11/11/21 04:00 Temperature 98.4 F Pulse Rate 78 70 Respiratory Rate 16 Blood Pressure 95/57 L Pulse Oximetry 100 98 11/11/21 06:00 11/11/21 08:00 11/11/21 08:31 Temperature 98.0 F Pulse Rate 70 86 Resp
[2021-11-11] MEDS: traMADol HCL (*CRX) 50 MG TABLET PO ×2 (10:25→20:55)
[2021-11-11] MEDS: KCL 20 MEQ/D5/0.9% SOD CHL 1,000 ML 100 ML IV CONT ×2 (12:02→20:51)
[2021-11-11] MEDS: SODIUM CHLORIDE 0.9% IV 500 ML IV CONT (12:08)
--- NOTE | 2021-11-11 12:40 | PM.CNGS ---
Assessment and Plan Assessment and plan (1) Abnormal CT of the abdomen: Code(s): R93.5 - Abnormal findings on diagnostic imaging of other abdominal regions, including retroperitoneum Status: Acute Assessment and Plan: I have reviewed the patient's CT. She does not seem to have any symptoms consistent with gallbladder disease. Her symptoms were most likely related to IVC and hepatic involvement of her metastatic lung cancer. Surgery would not be helpful to her given her underlying medical condition. Continue medical treatment at this time. Patient will likely need a Port-A-Cath at some point so that she can start chemotherapy if that is even an option. This however would require her Eliquis to be held and for her infectious sources to be controlled. 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 Patient presented mostly lower abdominal pain but is also experiencing some upper abdominal pain. She was found to have a urinary tract infection and is being admitted for further treatment. She has a recent diagnosis metastatic lung cancer and is still in the process of further workup and planning for initiating chemotherapy. She has evidence of a right adrenal metastases with extension into the inferior vena cava. Her CT also shows mottling of the liver and some gallbladder wall thickening. She does not recall any particular foods that have caused her abdominal pain. She has never had any known gallbladder issues in the past. Review of Systems Review of Systems: All systems reviewed & are unremarkable except as noted in HPI and below Constitutional: Constitutional: Denies chills and Denies fever(s) Eyes: Eyes: Denies change in vision ENT: Denies hearing loss, Denies neck pain and Denies sore throat Cardiovascular: Cardiovascular: Denies chest pain and Denies dyspnea Respiratory: Respiratory: Denies cough, Denies dyspnea and Denies wheezing Gastrointestinal: Gastrointestinal: Reports as per HPI Genitourinary: Genitourinary: Denies hematuria and Denies dysuria Musculoskeletal: Musculoskeletal: Denies arthralgias, Denies joint swelling and Denies neck pain Allergic/Immunologic: Allergic/Immunologic: Denies wheezing [facility] Past Medical History Medical History Chronic back pain Goiter Hypertension Non-small cell carcinoma of lung, stage 4 Surgical History Surgical History History of removal of pigmented skin lesion Hx of tubal ligation Family History Family History Mother Patient's mother is in good health Father Carcinoma of colon, Onset Age: 62 Patient's father is Social History Social History Social History: The patient has 1 son. She lives with her who is the durable power insurance attorney for healthcare. The patient is retired from the postal service. The patient quit smoking many years ago. She denies any alcohol marijuana or illicit drugs. Code status full code Smoking packs
[2021-11-12] VITALS (14 sets, daily range): BP systolic 85–122; BP diastolic 50–89; PULSE 58–100; RESP 16–20; TEMP 36.4–36.7; O2SAT 94–99; BMI 27.3
[2021-11-12] MEDS: KCL 20 MEQ/D5/0.9% SOD CHL 1,000 ML 100 ML IV CONT (09:05)
[2021-11-12] MEDS: APIXABAN 5 MG TABLET PO ×2 (09:06→20:06)
[2021-11-12] MEDS: traMADol HCL (*CRX) 50 MG TABLET PO ×3 (09:07→23:44)
[2021-11-12 10:48] LABS: Basophils Absolute Auto 0.1 K/mm3 (0.0-0.1); Basophils Percent Auto 0.8 % (0.2-1.2); Eosinophils Absolute Auto 1.5 K/mm3 (0-0.3); Eosinophils Percent Auto 11.8 % (0-4.4); Hematocrit 30.2 % (37.0-47.0); Hemoglobin 9.1 g/dL (12.0-15.0); Immature Granulocyte Absolute 0.05 K/mm3 (0.00-0.031); Immature Granulocyte Percent A 0.4 % (0-0.5); Lymphocytes Absolute Auto 1.96 K/mm3 (0.9-3.2); Mean Corpuscular HGB Conc 30.1 g/dl (32-36); Mean Corpuscular Hemoglobin 27.6 pg (26-34); Mean Corpuscular Volume 91.5 fl (80-100); Mean Platelet Volume 11.7 fl (7.4-10.4); Monocytes Absolute Auto 1.3 K/mm3 (0.1-0.6); Monocytes Percent Auto 10.6 % (2.6-8.5); Neutrophils Absolute Auto 7.4 K/mm3 (1.3-6.7); Neutrophils Percent Auto 60.4 % (45.5-73.1); Platelet Count Result 291 k/mm3 (150-375); Red Cell Distribution Width 15.1 % (11.5-14.5); White Blood Count 12.3 K/mm3 (4.5-10.0)
[2021-11-12 11:11] LABS: Alanine Aminotransferase 62 U/L (4-35); Albumin Level 2.9 g/dL (3.5-5.1); Alkaline Phosphatase 140 U/L (38-126); Anion Gap 9 mmol/L (8-16); Aspartate Amino Transferase 79 U/L (14-36); Bilirubin,Total 0.6 mg/dL (0.2-1.3); Blood Urea Nitrogen 17 mg/dL (7-17); Calcium 7.6 mg/dL (8.4-10.2); Carbon Dioxide 22 mmol/L (22-30); Chloride 106 mmol/L (98-107); Estimated CRCL calculation 46 ml/min; Estimated Glomerular Filt Rate 56; Glucose 119 mg/dL (65-110); Potassium 3.1 mmol/L (3.4-5.0); Sodium 137 mmol/L (137-145)
--- NOTE | 2021-11-12 16:23 | PM.IMPN ---
Progress Note: A&P Assessment and Plan (1) Sepsis: Qualifiers: Acute renal failure type: unspecified Sepsis acute organ dysfunction status: with acute organ dysfunction Sepsis type: sepsis due to unspecified organism Severe sepsis acute organ dysfunction type: acute renal failure Severe sepsis shock status: with septic shock Qualified Code(s): A41.9 - Sepsis, unspecified organism; R65.21 - Severe sepsis with septic shock; N17.9 - Acute kidney failure, unspecified Code(s): A41.9 - Sepsis, unspecified organism Status: Acute Assessment and Plan: Patient presented with leukocytosis, hypotension, fever and acute kidney injury. UA noted so started on abx for possible UTI. CXR was clear. COVID negative. BCx NGTD (1of2 with the other pending). No further fevers. WBC was 18K and has trended down to 12K today. She probably had a component of dehydration. The sepsis, dehydration coupled with her anti-HTN medications contributed to her HoTN. BP better. Will cut IV fluid rate in half and stop IV fluids if BP remains stable. Start PT/OT. Repeat CXR to exclude occult PNA. (2) Acute UTI: Code(s): N39.0 - Urinary tract infection, site not specified Status: Acute Assessment and Plan: UA noted but with many squamous cells. Zosyn started 11/10 PM for possible UTI. UCx negative and BCx NGTD (one culture pending). Clinically improving. Continue abx for now. (3) CESAR (acute kidney injury): Code(s): N17.9 - Acute kidney failure, unspecified Status: Acute Assessment and Plan: Cr 1.6 on admission. Related to dehydration. With IV fluids, Cr has normalized. Follow (4) Hypokalemia: Code(s): E87.6 - Hypokalemia Status: Acute Assessment and Plan: Likely due to poor intake and IV saline. This has been replaced but potassium 3.1 today. Will supplement with potassium again today. Follow. Check Mag level. (5) Anemia: Code(s): D64.9 - Anemia, unspecified Status: Acute Assessment and Plan: Hgb was 11.7on admisison but she was hemoconcentrated. Hgb now at 9.1 and stable after IV fluids. Suspect anemia multifactorial. Will add Pepcid. (6) Non-small cell carcinoma of lung, stage 4: Qualifiers: Laterality: unspecified laterality Qualified Code(s): C34.90 - Malignant neoplasm of unspecified part of unspecified bronchus or lung Code(s): C34.90 - Malignant neoplasm of unspecified part of unspecified bronchus or lung Status: Acute Assessment and Plan: CXR showing a stable EFRA mass. Pathology from last month showing poorly differentiated carcinoma. CT scan of the abdomen shows bilateral adrenal masses with invasion of the inferior vena cava by the right adrenal mass with extension of the mass into the right atrium. There is also a mottled enhancement of the liver and gallbladder wall thickening likely relate to inferior vena cava obstruction. She follows with Dr Rice. She has not yet begun treatment. Dr. Rice is aware of the patient's admission. (7) Elevated LFTs: Code(s): R79.89 - Other specified abnormal findings of blood chemistry Status: Acute Assessment and Plan: Mildly elevated LFTs noted. Related to above. Follow (8) Essential (primary) hypertension: Code(s): I10 - Essential (primary) hypertension Status: Acute Assessment and Plan: Holding meds due to hypotension. BP stable. Continue to monitor. (9) Diastolic heart failure, NYHA class 1: Code(s): I50.30 - Unspecified diastolic (congestive) heart failure Status: Acute Assessment and Plan: Appears euvolemic. Will cut IV fluids back. Stop if continues to eat well and BP remains stable. (10) DVT prophylaxis: Code(s): Z29.9 - Encounter for prophylactic measures, unspecified Status: Acute Assessment and Plan: Continue Eliquis. Patient on Eliquis for acute PE in the RU dia
[2021-11-12] MEDS: POTASSIUM CHLORIDE 20 MEQ TABLET 40 MEQ PO (17:25)
[2021-11-13] VITALS (9 sets, daily range): BP systolic 107–122; BP diastolic 56–77; PULSE 81–100; RESP 14–18; TEMP 36.1–36.7; O2SAT 96–99
[2021-11-13 05:01] LABS: Basophils Absolute Auto 0.1 K/mm3 (0.0-0.1); Basophils Percent Auto 0.8 % (0.2-1.2); Eosinophils Absolute Auto 1.4 K/mm3 (0-0.3); Eosinophils Percent Auto 10.4 % (0-4.4); Hematocrit 30.5 % (37.0-47.0); Hemoglobin 9.6 g/dL (12.0-15.0); Immature Granulocyte Absolute 0.08 K/mm3 (0.00-0.031); Immature Granulocyte Percent A 0.6 % (0-0.5); Lymphocytes Absolute Auto 2.16 K/mm3 (0.9-3.2); Mean Corpuscular HGB Conc 31.5 g/dl (32-36); Mean Corpuscular Hemoglobin 27.4 pg (26-34); Mean Corpuscular Volume 87.1 fl (80-100); Mean Platelet Volume 11.2 fl (7.4-10.4); Monocytes Absolute Auto 1.6 K/mm3 (0.1-0.6); Monocytes Percent Auto 11.7 % (2.6-8.5); Neutrophils Absolute Auto 8.1 K/mm3 (1.3-6.7); Neutrophils Percent Auto 60.5 % (45.5-73.1); Platelet Count Result 316 k/mm3 (150-375); Red Cell Distribution Width 15.2 % (11.5-14.5); White Blood Count 13.5 K/mm3 (4.5-10.0)
[2021-11-13 05:12] LABS: Alanine Aminotransferase 182 U/L (4-35); Albumin Level 2.9 g/dL (3.5-5.1); Alkaline Phosphatase 167 U/L (38-126); Anion Gap 7 mmol/L (8-16); Aspartate Amino Transferase 325 U/L (14-36); Blood Urea Nitrogen 15 mg/dL (7-17); Calcium 8.1 mg/dL (8.4-10.2); Carbon Dioxide 24 mmol/L (22-30); Chloride 105 mmol/L (98-107); Estimated CRCL calculation 51 ml/min; Estimated Glomerular Filt Rate > 60; Glucose 95 mg/dL (65-110); Magnesium 1.8 mg/dL (1.6-2.3); Sodium 136 mmol/L (137-145)
[2021-11-13] MEDS: APIXABAN 5 MG TABLET PO ×2 (08:04→20:44)
[2021-11-13] MEDS: traMADol HCL (*CRX) 50 MG TABLET PO ×2 (08:04→16:48)
[2021-11-13] MEDS: ONDANSETRON INJ 4 MG/2 ML VIAL IV PUSH ×3 (09:25→20:47)
--- NOTE | 2021-11-13 09:50 | PCOTNOTE ---
Attempted to see pt. for evaluation. Pt. refused to participate at this time d/t nausea
--- NOTE | 2021-11-13 11:08 | PM.IMPN ---
Progress Note: A&P Assessment and Plan (1) Sepsis: Qualifiers: Acute renal failure type: unspecified Sepsis acute organ dysfunction status: with acute organ dysfunction Sepsis type: sepsis due to unspecified organism Severe sepsis acute organ dysfunction type: acute renal failure Severe sepsis shock status: with septic shock Qualified Code(s): A41.9 - Sepsis, unspecified organism; R65.21 - Severe sepsis with septic shock; N17.9 - Acute kidney failure, unspecified Code(s): A41.9 - Sepsis, unspecified organism Status: Acute Assessment and Plan: Patient presented with leukocytosis, hypotension, fever and acute kidney injury. UA noted so started on abx for possible UTI. CXR was clear. COVID negative. BCx NGTD. No further fevers. WBC was 18K and has trended down to 13K today. Repeat CXR showing no infiltrates to suggest PNA. She probably had a component of dehydration. The sepsis,dehydration coupled with her anti-HTN medications contributed to her HoTN. BP still soft at times. She is off fluids. Continue PT/OT as tolerated. (2) Acute UTI: Code(s): N39.0 - Urinary tract infection, site not specified Status: Acute Assessment and Plan: UA noted but with many squamous cells. Zosyn started 11/10 PM for possible UTI. UCx negative and BCx NGTD (one culture pending). Clinically improving. UTI ruled out. (3) CESAR (acute kidney injury): Code(s): N17.9 - Acute kidney failure, unspecified Status: Acute Assessment and Plan: Cr 1.6 on admission. Related to dehydration. With IV fluids, Cr has normalized. Follow off IV fluids. (4) Hypokalemia: Code(s): E87.6 - Hypokalemia Status: Acute Assessment and Plan: Likely due to poor intake and IV saline. This has been replaced and potassium 4.0 today. Will continue to follow. Mag 1.8 and will replace (5) Anemia: Code(s): D64.9 - Anemia, unspecified Status: Acute Assessment and Plan: Hgb was 11.7 on admission but she was hemoconcentrated. Hgb now at 9.1 and stable. Suspect anemia multifactorial. Will continue to follow. (6) Non-small cell carcinoma of lung, stage 4: Qualifiers: Laterality: unspecified laterality Qualified Code(s): C34.90 - Malignant neoplasm of unspecified part of unspecified bronchus or lung Code(s): C34.90 - Malignant neoplasm of unspecified part of unspecified bronchus or lung Status: Acute Assessment and Plan: CXR showing a stable EFRA mass. Pathology from last month showing poorly differentiated carcinoma. CT scan of the abdomen shows bilateral adrenal masses with invasion of the inferior vena cava by the right adrenal mass with extension of the mass into the right atrium. There is also a mottled enhancement of the liver and gallbladder wall thickening likely relate to inferior vena cava obstruction. She follows with Dr Rice. She has not yet begun treatment. Discussed with Dr. Rice and he was unaware of the patient's admission. Case discussed with Dr Rice. This is a very aggressive cancer and that the patient probably would not tolerate chemo. He recommended patient should consider palliative treatment. He will try to stop by for further discussion. Spoke with patient and about palliative or hospice care. (7) Elevated LFTs: Code(s): R79.89 - Other specified abnormal findings of blood chemistry Status: Acute Assessment and Plan: Elevated LFTs that are climbing. Related to above. Check PT/PTT and ammonia levels. Follow (8) Essential (primary) hypertension: Code(s): I10 - Essential (primary) hypertension Status: Acute Assessment and Plan: Holding meds due to hypotension. BP mostly stable. Continue to monitor. (9) Diastolic heart failure, NYHA class 1: Code(s): I50.30 - Unspecified diastolic (congestive) heart failure Status: Acute Assessment and Plan: Appears eu
[2021-11-13] MEDS: MAGNESIUM SULF 2 GM/WATER 50ML 2 GM/50 ML BAG IVPB (12:06)
[2021-11-13] MEDS: PANTOPRAZOLE SODIUM IV 40 MG VIAL IV PUSH ×2 (12:12→20:44)
[2021-11-13 12:54] LABS: Ammonia 40 umol/L (9-30)
[2021-11-13 12:55] LABS: INR 3.5; Prothrombin Time 33.9 Seconds (11.1-14.7)
[2021-11-13 12:56] LABS: Partial Thromboplastin Time 46.5 SECONDS (22.3-36.8)
[2021-11-14] VITALS: BP 136/70; PULSE 89; RESP 18; TEMP 36.7; O2SAT 99
[2021-11-14] MEDS: traMADol HCL (*CRX) 50 MG TABLET PO ×2 (00:57→08:20)
[2021-11-14 05:18] LABS: Basophils Absolute Auto 0.1 K/mm3 (0.0-0.1); Basophils Percent Auto 0.7 % (0.2-1.2); Eosinophils Absolute Auto 0.5 K/mm3 (0-0.3); Eosinophils Percent Auto 4.4 % (0-4.4); Hematocrit 31.6 % (37.0-47.0); Hemoglobin 9.8 g/dL (12.0-15.0); Immature Granulocyte Absolute 0.06 K/mm3 (0.00-0.031); Immature Granulocyte Percent A 0.5 % (0-0.5); Lymphocytes Absolute Auto 2.08 K/mm3 (0.9-3.2); Lymphocytes Percent Auto 17.1 % (18.3-44.2); Mean Corpuscular Hemoglobin 27.3 pg (26-34); Mean Platelet Volume 11.2 fl (7.4-10.4); Monocytes Absolute Auto 1.1 K/mm3 (0.1-0.6); Monocytes Percent Auto 9.3 % (2.6-8.5); Neutrophils Absolute Auto 8.3 K/mm3 (1.3-6.7); Platelet Count Result 304 k/mm3 (150-375); Red Blood Count 3.59 M/mm3 (4.2-5.4); Red Cell Distribution Width 15.3 % (11.5-14.5); White Blood Count 12.2 K/mm3 (4.5-10.0)
[2021-11-14 05:34] LABS: Alanine Aminotransferase 373 U/L (4-35); Alkaline Phosphatase 170 U/L (38-126); Anion Gap 9 mmol/L (8-16); Aspartate Amino Transferase 623 U/L (14-36); Bilirubin,Total 1.2 mg/dL (0.2-1.3); Blood Urea Nitrogen 18 mg/dL (7-17); Calcium 8.3 mg/dL (8.4-10.2); Carbon Dioxide 21 mmol/L (22-30); Chloride 105 mmol/L (98-107); Estimated CRCL calculation 58 ml/min; Estimated Glomerular Filt Rate > 60; Glucose 93 mg/dL (65-110); Magnesium 2.1 mg/dL (1.6-2.3); Potassium 4.2 mmol/L (3.4-5.0); Sodium 135 mmol/L (137-145)
[2021-11-14 08:00] VITALS: BP 129/79; PULSE 87; RESP 87; TEMP 36.2; O2SAT 99
[2021-11-14] MEDS: APIXABAN 5 MG TABLET PO (08:20)
[2021-11-14] MEDS: PANTOPRAZOLE SODIUM IV 40 MG VIAL IV PUSH (08:22)
[2021-11-14] MEDS: ONDANSETRON INJ 4 MG/2 ML VIAL IV PUSH (08:22)
[2021-11-14 08:47] VITALS: O2SAT 99
--- NOTE | 2021-11-14 09:05 | WPDCDIQUERY2 ---
CDI Query Clarification Request -Acute UTI ruled out per progress note - CXR was clear. COVID negative. BCx NGTD -Severe sepsis with septic shock has been documented Please clarify: cause of severe sepsis, or if unknown, or if ruled out. <Monserrat Galarza RN - Last Filed: 11/14/21 09:09>
--- NOTE | 2021-11-14 12:27 | PM.DS ---
DS: Admitting Diagnosis Discharge Date 11/14/21 Admitting Diagnosis Short of breath DS: Discharge Diagnosis Discharge Diagnosis (1) Sepsis: Qualifiers: Sepsis type: sepsis due to unspecified organism Sepsis acute organ dysfunction status: with acute organ dysfunction Severe sepsis acute organ dysfunction type: acute renal failure Acute renal failure type: unspecified Severe sepsis shock status: with septic shock Qualified Code(s): A41.9 - Sepsis, unspecified organism; R65.21 - Severe sepsis with septic shock; N17.9 - Acute kidney failure, unspecified Code(s): A41.9 - Sepsis, unspecified organism Status: Acute Assessment and Plan: Patient presented with leukocytosis, hypotension, fever and acute kidney injury. UA noted so started on abx for possible UTI. CXR was clear. COVID negative. BCx NGTD. No further fevers. WBC was 18K and has trended down to 12K. Repeat CXR showing no infiltrates to suggest PNA. She probably had a component of dehydration. The sepsis,dehydration coupled with her anti-HTN medications contributed to her HoTN. Patient with sepsis but etiology unclear. She had improvement with IV abx. (2) Acute UTI: Code(s): N39.0 - Urinary tract infection, site not specified Status: Acute Assessment and Plan: UA noted but with many squamous cells. Zosyn started 11/10 PM for possible UTI. UCx negative. UTI ruled out. (3) CESAR (acute kidney injury): Code(s): N17.9 - Acute kidney failure, unspecified Status: Acute Assessment and Plan: Cr 1.6 on admission. Related to dehydration. With IV fluids, Cr has normalized. Follow off IV fluids. (4) Hypokalemia: Code(s): E87.6 - Hypokalemia Status: Acute Assessment and Plan: Likely due to poor intake and IV saline. This has been replaced and potassium normalized. (5) Anemia: Code(s): D64.9 - Anemia, unspecified Status: Acute Assessment and Plan: Hgb was 11.7 on admission but she was hemoconcentrated. Hgb dropped to the 9 range but there it remained stable (6) Non-small cell carcinoma of lung, stage 4: Qualifiers: Laterality: unspecified laterality Qualified Code(s): C34.90 - Malignant neoplasm of unspecified part of unspecified bronchus or lung Code(s): C34.90 - Malignant neoplasm of unspecified part of unspecified bronchus or lung Status: Acute Assessment and Plan: CXR showing a stable EFRA mass. Pathology from last month showing poorly differentiated carcinoma. CT scan of the abdomen shows bilateral adrenal masses with invasion of the inferior vena cava by the right adrenal mass with extension of the mass into the right atrium. There is also a mottled enhancement of the liver and gallbladder wall thickening likely relate to inferior vena cava obstruction. She follows with Dr Rice. She has not yet begun cancer treatment. Discussed with Dr. Rice and case discussed. This is a very aggressive cancer and that the patient probably would not tolerate chemo. He recommended patient should consider palliative treatment or hospice/palliative care. Spoke with patient and about palliative or hospice care. They decided to proceed with hospice care with plans for discharge home today on hospice care. (7) Elevated LFTs: Code(s): R79.89 - Other specified abnormal findings of blood chemistry Status: Acute Assessment and Plan: Elevated LFTs that are climbing. Related to above. (8) Essential (primary) hypertension: Code(s): I10 - Essential (primary) hypertension Status: Acute Assessment and Plan: Holding anti-HTN medications due to hypotension. BP remained stable (9) Diastolic heart failure, NYHA class 1: Code(s): I50.30 - Unspecified diastolic (congestive) heart failure Status: Acute Assessment and Plan: Clincally euvolemic. DS: Summary Hospital Course Magdalene
== END 2021-11-14 13:47 | disposition hospice, home (50) | DRG 871 ==
LOC: ANHED 16:53 → ANHIMU 20:46
PROVIDERS: Admitting Provider Internal Medicine; Emergency Provider Emergency Medicine; PCP Internal Medicine; Visit Provider Internal Medicine
DX: A41.9 Sepsis, unspecified organism (principal); R65.21 Severe sepsis with septic shock; C34.90 Malignant neoplasm of unspecified part of unspecified bronchus or lung; I50.30 Unspecified diastolic (congestive) heart failure; N17.9 Acute kidney failure, unspecified; C79.89 Secondary malignant neoplasm of other specified sites; C79.71 Secondary malignant neoplasm of right adrenal gland; I11.0 Hypertensive heart disease with heart failure; E87.6 Hypokalemia; D64.9 Anemia, unspecified; R79.89 Other specified abnormal findings of blood chemistry; Z20.822 Contact with and (suspected) exposure to COVID-19; Z79.899 Other long term (current) drug therapy; Z87.891 Personal history of nicotine dependence
CPT/HCPCS: 36415; 36600; 51701; 71045; 74019; 74177; 80048; 80053; 81001; 82140; 82805; 83605; 83690; 83735; 83880; 84484; 85025; 85610; 85730; 87040; 87086; 93005; 96361; 96365; 96366; 96367; 96375; 97161; 97166; 99285; A9270; C9113; C9803; G0378; J0131; J2405; J2543; J3475; J3480; J7030; J7040; Q9967; U0003; U0005